=== PATIENT | female | born 1985 | race Two or more races ===

== ENCOUNTER 2024-02-27 07:26 | Inpatient (IN) ==
[2024-02-27] MEDS ORDERED: LIDOCAINE 1% LOCAL 20 ML VIAL INFIL PRN (07:44)
[2024-02-27] MEDS ORDERED: OXYTOCIN 30 UNITS/NSS 30 UNITS/500 ML BAG IV PRN (07:44)
[2024-02-27 08:12] LABS: Hematocrit (blood only) 40.1 % (37.0-47.0); Hemoglobin 13.1 g/dl (12.0-16.0); Mean Corpuscular Hemoglobin 28.4 pg (25.0-34.0); Mean Corpuscular Hgb Conc 32.7 g/dL (32.0-36.0); Mean Platelet Volume 13.9 fL (9.4-12.4); Platelet Count 120 K/uL (130-400); RDW Coefficient of Variation 14.1 % (11.5-14.5); RDW Standard Deviation 44.6 fL (36.4-46.3); Red Blood Count 4.61 M/uL (4.20-5.40)
[2024-02-27] MEDS: CALCIUM CARBONATE 500 MG CHEWABLE TAB PO PRN (09:39)
--- NOTE | 2024-02-27 10:09 | History & Physical Report ---
Date of Service February 27, 2024 Assessment & Plan (1) Post-dates : Plan: IOL with Oxytocin planned Admission and Anticipated Discharge Date Admission Date: February 27, 2024 History of Present Illness Chief Complaint: induction of labor Primary Care Provider: LASHAWN PCP 38 F P1001 at 40.5 admitted for IOL for post-dates and AMA. Her GBS is negative. Allergies Allergy/AdvReac Type Severity Reaction Status Date / Time No Known Allergies Allergy Unverified 02/27/24 08:46 Home Medications Medication Instructions Recorded Confirmed Type vit no.95-ferrous 1 tab PO DAILY 02/27/24 02/27/24 History fumarate 28 mg-folic acid 800 mcg tablet () Patient History Medical History Intrauterine synechiae AMA (advanced maternal age) multigravida 35+ Surgical History History of appendectomy Family History Grandmother (Maternal) Diabetes Mother Congestive heart failure (CHF) Graves disease Father Congestive heart failure (CHF) Social History Smoking Status: Former smoker Tobacco Type: Cigarettes Age Started Using Tobacco: 16; Age Quit Using Tobacco: 37; packs per day: 1; Smoking End Date: 03/2023; Second Hand Exposure: No; Do You Dip or Chew Tobacco: No; Tobacco Cessation Education Requested by Patient: No Hx Alcohol Use: No Hx Substance Use: No Preferred Language: Malaysian Communication Ability: Effective Visual Impairment: No Limitations Hearing Ability: Normal Composition Board Press Operator Required: No Beliefs That Will Affect Care: None marital status: Single marital status details: engaged Current Living Situation: Significant Other current occupational status: employed 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 Other Information That Helps Us Care for You: No Feels Safe at Home: Yes Safety Concerns: Feels Safe At This Time Childhood Exposure to Second-Hand Smoke: Yes Dental Care, Regularly: Yes Physical Activity Frequency: Daily Do you think of yourself as: straight/heterosexual Assistive Devices: None OB History x1 13 years ago new FOB [employer] GRADING SUPERVISOR History neg Review of Systems All systems reviewed & are unremarkable except as noted in HPI & below Physical Exam Constitutional: WD/WN, vitals as above Eyes: PERRL, conjunctivae normal, anicteric sclerae Respiratory: normal respiratory effort, lungs clear to auscultation Cardiovascular: RRR, no murmur, no edema Gastrointestinal (Abdomen): Inspection/Auscultation: abdomen normal to inspection Musculoskeletal: Extremities: extremities normal to inspection Skin: no rashes, warm and dry Neurologic: patellar DTR's 2+ bilat, sensation intact Psychiatric: A+Ox3, euthymic affect Genitourinary: Manual OB Exam: + cervical dilation 2 cm, + cervical effacement 50% and + station high OB Exam Monitor Tracing: + external FHT monitor used, + external uterine monitor used, + category I and + normal FHT variability Cervix soft/posterior EFW 8 lbs. Results & Data Vital Signs (Past 12 Hours) Vital Signs Temp Pulse Resp BP 02/27/24 08:16 36.8 C 20 02/27/24 07:33 101 H 136/77 Laboratory Results Laboratory Results - last 72 hr 02/27/24 07:52 WBC 8.20 RBC 4.61 Hgb 13.1 Hct 40.1 MCV 87.0 MCH 28.4 MCHC 32.7 RDW Std Deviation 44.6 RDW Coeff of Cheo 14.1 Plt Count 120 L MPV 13.9 H Monitoring External Monitor Cat 1 (1) Post-dates Post-term type: 40-42 weeks gestation Qualified Code(s): O48.0 - Post-term
[2024-02-27] MEDS: LACTATED RINGER'S 1,000 ML IV PRN (10:27)
[2024-02-27] MEDS: OXYTOCIN 30 UNITS/NSS 30 UNITS/500 ML BAG IV PRN (10:28)
--- NOTE | 2024-02-27 14:31 | Labor Progress Brief Note ---
Date of Service February 27, 2024 Assessment & Plan Admission and Anticipated Discharge Date Admission Date: February 27, 2024 Physical Exam Genitourinary: Manual OB Exam: + cervical dilation 2 cm and 3 cm, + cervical effacement 80%, + station -2 and + amniotic fluid clear OB Exam Monitor Tracing: + external FHT monitor used, + external uterine monitor used, + category I and + normal FHT variability AROM with Amni-hook clear fluid Results & Data Vital Signs (Past 12 Hours) Vital Signs Temp Pulse Resp BP 02/27/24 13:35 71 02/27/24 13:35 20 129/74 02/27/24 12:28 20 02/27/24 12:28 20 02/27/24 12:28 68 02/27/24 12:28 129/76 02/27/24 11:29 20 02/27/24 11:29 20 02/27/24 11:29 76 02/27/24 11:29 121/76 02/27/24 10:32 76 02/27/24 10:32 119/72 02/27/24 10:28 16 02/27/24 10:28 36.7 C 16 02/27/24 08:16 36.8 C 02/27/24 07:33 101 H 136/77
[2024-02-27] MEDS: CITRIC ACID/SODIUM CITRATE 15 ML UDC ONE (16:18)
[2024-02-27] MEDS ORDERED: OXYTOCIN 10 UNITS/ML VIAL ONE ×3 (16:19)
[2024-02-27] MEDS ORDERED: fentaNYL citrate PF 100 MCG/2 ML VIAL ONE (16:19)
[2024-02-27] MEDS ORDERED: MoRPHine SULFATE PF 1 MG/ML 10 ML AMP/VIAL ONE (16:19)
[2024-02-27] MEDS ORDERED: PHENYLEPHRINE HCL 25 MG/250 ML NSS IV ONE (16:25)
[2024-02-27] MEDS ORDERED: ONDANSETRON INJ 2 MG/ML 2 ML VIAL ONE (16:25)
--- NOTE | 2024-02-27 16:26 | Anesthesiology Consultation ---
Date of Service February 27, 2024 Assessment & Plan Chart Review Chart Review: Acceptable Risk for Surgery and Patient NOT seen in Pre Admission Testing Consults Requested none History Surgery Operation Date: 02/27/24 16:30 Proposed Procedures p Section in LD - Dre Seymour MD Height/Weight Height: 5 ft 8 in Weight: 100.698 kg Allergies Allergy/AdvReac Type Severity Reaction Status Date / Time No Known Allergies Allergy Unverified 02/27/24 08:46 Medications Home Medications Medication Instructions Recorded Confirmed Last Taken vit no.95-ferrous 1 tab PO DAILY 02/27/24 02/27/24 02/27/24 05:45 fumarate 28 mg-folic acid 800 mcg tablet () Active Medications Generic Name Dose Route Start Last Admin Trade Name Freq PRN Reason Stop Dose Admin Calcium Carbonate 500 mg 02/27/24 09:29 02/27/24 09:39 Calcium Carbonate 500 Mg Chewable Tab PO 03/28/24 09:28 500 mg Q4 PRN Administration Indigestion Lactated Ringer's 1,000 mls @ 125 mls/hr 02/27/24 07:44 02/27/24 10:27 Lr IV 02/29/24 07:43 125 mls/hr .Q8H PRN Administration L&D Protocol Protocol NPO Date Last Intake of Fluids: 02/27/24 Time Last Intake of Fluids: 12:30 Date Last Intake of Solids: 02/27/24 Time Last Intake of Solids: 06:30 Past Medical History Medical History Intrauterine synechiae AMA (advanced maternal age) multigravida 35+ Past Family History Family History Grandmother (Maternal) Diabetes Mother Congestive heart failure (CHF) Graves disease Father Congestive heart failure (CHF) Past Surgical History Surgical History History of appendectomy Social History Smoking Status: Former smoker Do You Dip or Chew Tobacco: No Smoking End Date: 03/2023 Hx Alcohol Use: No Hx Substance Use: No Physical Exam Vital Signs Last Vital Signs Temp 36.8 C 02/27/24 14:36 Pulse 95 H 02/27/24 15:28 Resp 20 02/27/24 13:35 BP 139/95 02/27/24 15:28 Constitutional WD/WN, vitals as above Eyes PERRL, conjunctivae normal, anicteric sclerae Respiratory normal respiratory effort, lungs clear to auscultation Cardiovascular RRR, no murmur, no edema Gastrointestinal (Abdomen) Inspection/Auscultation: abdomen normal to inspection Musculoskeletal Extremities: extremities normal to inspection Skin no rashes, warm and dry Neurologic patellar DTR's 2+ bilat, sensation intact Psychiatric A+Ox3, euthymic affect Genitourinary Manual OB Exam: + cervical dilation + 2 cm and + 3 cm, + cervical effacement + 80%, + station + -2 and + amniotic fluid + clear OB Exam Monitor Tracing: + external FHT monitor used, + external uterine monitor used, + category I and + normal FHT variability Testing Laboratory Results 02/27/24 07:52
--- NOTE | 2024-02-27 16:29 | Labor Progress Brief Note ---
Date of Service February 27, 2024 Assessment & Plan Admission and Anticipated Discharge Date Admission Date: February 27, 2024 Physical Exam Genitourinary: Manual OB Exam: + cervical dilation 6 cm, + cervical effacement 90%, + station -1 and + amniotic fluid clear OB Exam Monitor Tracing: + external FHT monitor used, + external uterine monitor used, + category I and + normal FHT variability found to be breech with ultrasound confirmation will proceed with primary for breech consents signed Results & Data Vital Signs (Past 12 Hours) Vital Signs Temp Pulse Resp BP 02/27/24 16:26 71 02/27/24 16:26 155/75 H 02/27/24 15:28 95 H 02/27/24 15:28 139/95 02/27/24 14:36 36.8 C 02/27/24 14:36 73 02/27/24 14:36 137/82 02/27/24 13:35 71 02/27/24 13:35 20 129/74 02/27/24 12:28 20 02/27/24 12:28 20 02/27/24 12:28 68 02/27/24 12:28 129/76 02/27/24 11:29 20 02/27/24 11:29 20 02/27/24 11:29 76 02/27/24 11:29 121/76 02/27/24 10:32 76 02/27/24 10:32 119/72 02/27/24 10:28 16 02/27/24 10:28 36.7 C 16 02/27/24 08:16 36.8 C 20 02/27/24 07:33 101 H 136/77
[2024-02-27] MEDS ORDERED: LACTATED RINGER'S 1,000 ML IV SCH ×2 (16:30→18:45)
[2024-02-27] MEDS: ceFAZolin 3000MG 3,000 MG/72.5 ML BAG IV ONE (16:35)
[2024-02-27] MEDS ORDERED: diphenhydrAMINE 50 MG/ML VIAL IV PRN (16:56)
[2024-02-27] MEDS ORDERED: LACTATED RINGER'S 500 ML IV PRN (16:56)
[2024-02-27] MEDS ORDERED: NALOXONE HCL 0.4 MG/1 ML VIAL/CARP IV PRN (16:56)
[2024-02-27] MEDS ORDERED: MoRPHine SULFATE PF 1 MG/ML 10 ML AMP/VIAL INT SPINAL ONE (16:56)
[2024-02-27] MEDS ORDERED: ePHEDrine sulfate 50 MG/ML AMP IV PRN (16:56)
[2024-02-27] MEDS ORDERED: DROPERIDOL 5 MG/2 ML VIAL IV PRN (16:56)
[2024-02-27] MEDS ORDERED: NALOXONE HCL 0.08 MG in SYRINGE 1.8 ML IV PRN (16:56)
[2024-02-27] MEDS ORDERED: HYDROmorphone INJ 0.5 MG/0.5 ML SYR IV PRN (16:56)
[2024-02-27] MEDS ORDERED: NALBUPHINE HCL 5 MG in SYRINGE 0 ML IV PRN (16:56)
[2024-02-27] MEDS ORDERED: NALOXONE HCL 1 MG in SODIUM CHLORIDE 0.9% 1,000 ML IV PRN (16:56)
[2024-02-27] MEDS: AZITHROMYCIN 500 MG in DEXTROSE 5% 250 ML IV ONE (16:57)
[2024-02-27] MEDS ORDERED: NO NARCOTICS OR SEDATIVES SCH (17:00)
[2024-02-27] MEDS ORDERED: DC INTRASPINAL MORPHINE SCH (17:00)
--- NOTE | 2024-02-27 17:59 | Post Operative Brief Note ---
Immediate Post Op Note Date of Surgery February 27, 2024 Pre & Post Diagnosis Operation Date: 02/27/24 16:30 Pre-Op Diagnosis: Intrauterine , breech presentation, primary section Post-Op Diagnosis: same I identified the patient and participated in the time-out.: Yes Procedure Operation Date: 02/27/24 16:30 Actual Procedures p Section in LD breech living female child 1709(Bilateral) - Dre Seymour MD Surgeon Dre Seymour MD Accounting Methods Analyst Dr Baugh Quantitative Blood Loss (QBL) 537 ml. Findings Consistent with Post-Op Diagnosis live female Apgars 8/8 weight 8lbs. 7 oz. Fluids LR 500 ml. Specimens Specimen Description: A: cord blood B: placenta-exam Drains Loo Catheter (inserted following spinal placement by Socorro Romo RN without difficulty. Draining clear yellow urine. Output to be monitored by anesthesia intraoperatively) Anesthesia Type Spinal Complications none Disposition Accompanied Patient To Recovery: Yes Overlapping Procedure I was present for: the critical portions of procedure. I was immediately available: during the entire case. Back up surgeon: was not required during procedure.
[2024-02-27] MEDS ORDERED: PROMETHAZINE HCL 25 MG in SODIUM CHLORIDE 0.9% 50 ML IV PRN (18:26)
[2024-02-27] MEDS ORDERED: MAGNESIUM HYDROXIDE SUSP 30 ML UDC PO PRN (18:26)
[2024-02-27] MEDS ORDERED: diphenhydrAMINE Capsule 25 MG CAP PO PRN (18:26)
[2024-02-27] MEDS ORDERED: SENNA 8.6 MG TAB PO PRN (18:26)
[2024-02-27] MEDS ORDERED: BENZOCAINE 20% SPRY 85 APPLN/85 GM CAN EXT PRN (18:26)
[2024-02-27] MEDS ORDERED: ONDANSETRON INJ 2 MG/ML 2 ML VIAL IV PRN (18:26)
[2024-02-27] MEDS ORDERED: HYDROCORTISONE ACETATE 25 MG SUPP PR PRN (18:26)
[2024-02-27] MEDS: DIPHTHER/TETAN/PERTUS Vaccine (Tdap, Adol/Adult) 0.5mL IM ONE (18:44)
--- NOTE | 2024-02-27 18:56 | Operative Report ---
Post Operative Report Pre & Post Diagnosis Operation Date: 02/27/24 16:30 Pre-Op Diagnosis: Intrauterine , breech presentation, primary section Post-Op Diagnosis: same I identified the patient and participated in the time-out.: Yes Procedure Operation Date: 02/27/24 16:30 Actual Procedures p Section in LD breech living female child 1709(Bilateral) - Dre Seymour MD Surgeon Dre Seymour MD Pediatric Physician Assistant Dr Baugh Estimated Blood Loss 537 Findings Consistent with Post-Op Diagnosis live female rhys breech presentation weight 8lbs. 7 oz. Fluids 500 ml. Specimens placenta Drains Loo 50 ml. Anesthesia Type Spinal Complications none Disposition Accompanied Patient To Recovery: Yes Indications breech presentation Description of Procedure Under satisfactory spinal anesthesia the patient was prepped in usual sterile fashion the patient was tested for adequacy of anesthesia antibiotics were given preop. A timeout was called and the patient was identified prior to the start of the procedure. A low Pfannenstiel incision was then made and then carried the incision down through the layers of the abdominal wall into the peritoneal cavity. The bladder flap was then developed with Metzenbaum scissors sharply dissecting down the vesicouterine peritoneum. A low segment transverse incision over the lower uterine segment was then made the incision was widened in the AP diameter of the baby was delivered from the breech presentation through the incision without difficulty the cord was doubly clamped and cut after a 1 minute delay with an of 8 and 9 weight was 8 pounds 7 ounces rhys breech presentation. Cord blood was then obtained the placenta was then delivered spontaneously and intact. The uterus was then exteriorized. Ring forceps were then placed on both angles and the inferior margin of the uterus and was then closed with a double layer closure of 0 Vicryl suture in a continuous fashion. The initial sponge and instrument count were found to be correct. The uterus was then placed back into the normal anatomical position the tubes ovaries bilaterally were found to be within normal limits. The fascia was then closed from both ends using 0 Vicryl suture in a continuous fashion followed by 3-0 plain suture for the subcuticular layer and 4-0 Monocryl for the skin. Steri- Strips Telfa and ABD dressing were then applied clear urine was noted from the Loo the estimated blood loss the QBL rather was 537 mL the final sponge and instrument count being correct the patient was then placed supine on stretcher moved to recovery room in stable condition. I attest to the content of the Intraoperative Record and any orders documented therein. Any exceptions are noted below. Please note that Dr. Baugh was needed to provide retraction and assistance at delivery of breech, closure of abdomen and uterus.
[2024-02-27] MEDS: OXYTOCIN 20 UNITS/LR 1,002 ML IV SCH (19:36)
[2024-02-27] MEDS: KETOROLAC 30 MG/ML VIAL IV PRN (20:50)
[2024-02-27] MEDS: SIMETHICONE 80 MG CHEW PO SCH (20:50)
[2024-02-27] MEDS: DOCUSATE SODIUM 100 MG CAP PO SCH (20:51)
--- OUTSIDE RECORDS SUMMARY | 2024-02-28 01:52 | External Medical Summary | Summary of Care ---
Author Name Unknown Organization [facility] Address [address] [facility] [place] [address] Phone [phone] Care Team Providers Care Sports Physiologist Name Role Phone Diego Morfin MD Primary Care Provider Reason for Visit * Reason Comments Return Visit Encounter Details Date Type Department Care Team (Late st Contact Info) Description 02/21/2024 4:45 PM EDT Office Visit Gynecology/Obstetri vargas [facility] [address] [place] [address] Zoe Gibbs PA-C [address] [place] [address] Nurse [facility] Return [facility] [place] [address] High-risk in third trimester*; Multigravida of advanced maternal age in third trimester; Late care; Obesity in , antepartum; Intrauterine synechiae; Health counseling Allergies No known active allergiesdocumented as of this encounter (statuses as of 02/21/2024) Medications Medication Sig Dispensed Refills Start Date End Date Status 27-0.8 MG Oral Tablet Take 1 Tablet by mouth daily at noon. Active documented as of this encounter (statuses as of 02/21/2024) Active Problems Problem Noted Date Diagnosed Date High-risk 12/19/2023 Health counseling 11/16/2023 Overview: Problem Action Taken Date entered Entered by Date resolved nutrition Due date letter given. 11/16/2023 Nicole Meredith RN 11/16/2023 education Birthly info given. 11/16/2023 Nicole Meredith RN 11/16/2023 Problem Action Taken Date entered Entered by Date resolved Current needs or questions Patient denies having any current needs or questions 12/19/2023 Aurora Lopez RN 12/19/2023 Problem Action Taken Date entered Entered by Date resolved Current needs or questions Patient denies having any current needs or questions 01/02/2024 Nicole Meredith RN 01/02/2024 Problem Action Taken Date entered Entered by Date resolved Current needs or questions Patient denies having any current needs or questions 01/15/2024 Nicole Meredith RN 01/15/2024 Problem Action Taken Date entered Entered by Date resolved Current needs or questions Patient denies having any current needs or questions 01/29/2024 Nicole Meredith RN 01/29/2024 Problem Action Taken Date entered Entered by Date resolved Current needs or questions Patient denies having any current needs or questions 02/05/2024 Nicole Meredith RN 02/05/2024 Problem Action Taken Date entered Entered by Date resolved Current needs or questions Patient denies having any current needs or questions 02/12/2024 Aurora Lopez RN 02/12/2024 Problem Action Taken Date entered Entered by Date resolved Current needs or questions Patient denies having any current needs or questions 02/21/2024 Aurora Lopez RN 02/21/2024 Intrauterine synechiae 10/23/2023 Overview: Noted at 22 wks, will repeat scan 28 wks Late care 09/19/2023 Overview: Initiated at 18 weeks AMA (advanced maternal age) multigravida 35+ 11/2023 Obesity in , antepartum 09/19/2023 Overview: Class 1 Estimated Date of Delivery Comme nts Yes 02/22/2024 Based on last me nstrual period of 05/18/2023 documented as of this encounter (statuses as of 02/21/2024) Immunizations Name Administration Dates Next Due Seasonal Influenza, PF, 6 M & above, IM , (FluLaval or Fluzone) 09/19/2023 TDAP (age 10 and older)(Boostrix) 12/19/2023 documented as of this encounter Social History Tobacco Use Types Packs/Day Years Used Date Smoking Tobacco: Never Smokeless Tobacco: Never Alcohol Use Standard Drinks/Week Comments Not Currently 0 (1 standard drink = 0.6 oz pur e alcohol) PHQ-2 Answer Date Recorded PHQ Adult Total Score 0 12/03/2023 Hunger Vital Sign Answer Date Recorded Within the past 12 months, y ou worried that your food would run out before you got the money to buy more. Never true 09/06/20 23 Within the past 12 months, t he food you bought just didn't last and you didn't have money to get more. Never true 09/06/2023 [place] Depression Scale Answer Date Recorded [place] Depression Scale Total 4 01/15/2024 The thought of harming myself has occurred to me . Never 01/15/2024 Estimated Date of Delivery Comme nts Yes 02/22/2024 Based on last me nstrual period of 05/18/2023 Sex and Gender Information Value Date Recorded Sex Assigned at Female 09/06/2023 4:51 PM EST Gender Identity Female 09/06/2023 4:51 PM EST Sexual Orientation Straight 09/06/2023 4: 51 PM EST Job Start Date Occupation Industry Not on file Not on file Not on file documented as of this encounter Last Filed Vital Signs Vital Sign Reading Time Taken Comments Blood Pressure 118/78 02/21/2024 4:56 PM EDT Pulse - - Temperature - - Respiratory Rate - - Oxygen Saturation - - Inhaled Oxygen Concentration - - Weight 102.6 kg (226 lb 3.2 oz) 02/21/2024 4:56 PM EDT Height 172.7 cm (5' 8") 02/21/2024 4:56 PM EDT Body Mass Index 34.39 02/21/2024 4:56 PM EDT documented in this encounter Progress Notes * Zoe Gibbs PA-C - 02/21/2024 5:07 PM EDT [id number] Denies complaints. Denies VB, LOF, regular contractions. Reports intermittent contractions. No timing or regularity. Declines cervical check. Baby active. Labor precautions given. Has numbers to call if needed. IOL 02/27/2024, she is aware Zoe Gibbs PA-C documented in this encounter Nursing Notes * Aurora Lopez RN - 02/21/2024 4:57 PM EDT Patient here for CECILY 39w6d No concerns + FM Patient seen by [facility] Sharepoint Solutions Developer. Patient denies any questions or concerns. Aurora Lopez RN documented in this encounter Plan of Treatment Health Maintenance Due Date Last Done Comments Diabetes Screening 1985 Hepatitis B (1 of 3 - 19+ 3-dose series) 2004 COVID-19 Vaccine ( - 2022-2 4 season) 2023 Depression Screening 12/02/2024 12/03/2023 Pap Smear 09/19/2026 09/19/2023 Cervical Cancer Screening 09/19/2028 HPV/Co-Test 09/19/2028 09/19/2023 DTaP,Tdap,and Td Vaccines (2 - Td or Tdap) 2033 12/19/2023 Influenza Vaccine (FLU shot) Completed 11/2023, 09/19/2023 GARDASIL-HPV IMMUNIZATION SERIES Aged Out No longer eligible b ased on patient's age to complete this topic MENINGOCOCCAL (MENACTRA/MENVEO) Aged Out No longer eligible b ased on patient's age to complete this topic Pneumococcal Vaccine: Pediatrics (0 to 5 Years) and At-Risk Patients (6 to 64 Years) Aged Out No longer eligible b ased on patient's age to complete this topic documented as of this encounter Medical Devices Not on filedocumented as of this encounter Visit Diagnoses Diagnosis High-risk in third trimester- Primary Multigravida of advanced maternal age in third trimester Late care Insufficient care Obesity in , antepartum Obesity complicating , childbirth, or the puerperium, antepartum condition or complication Intrauterine synechiae Health counseling Other specified counseling documented in this encounter Care Teams Sports Physiologist Relationship Specialty Start Date End Date Diego Morfin MD [address] [address] PCP - General 06/01/00 documented as of this encounter
--- OUTSIDE RECORDS SUMMARY | 2024-02-28 01:52 | External Medical Summary | Summary of Care ---
Author Name Unknown Organization [facility] Address [address] [facility] [place] [address] Phone [phone] Care Team Providers Care Instrument Adjuster Name Role Phone Diego Morfin MD Primary Care Provider Encounter Details Date Type Department Care Team (Late st Contact Info) Description 02/21/2024 Telephone Gynecology/Obstetrics [facility] [address] [place] [address] Zoe Gibbs PA-C [address] [place] [address] Allergies No known active allergiesdocumented as of this encounter (statuses as of 02/22/2024) Medications Medication Sig Dispensed Refills Start Date End Date Status 27-0.8 MG Oral Tablet Take 1 Tablet by mouth daily at noon. Active documented as of this encounter (statuses as of 02/22/2024) Active Problems Problem Noted Date Diagnosed Date [...] as of this encounter (statuses as of 02/22/2024) Immunizations Name Administration Dates Next Due Seasonal [...] money to get more. Never true 09/06/2023 [place] Depression Scale Answer Date Recorded [place] Depression Scale Total 4 01/15/2024 The thought [...] on file documented as of this encounter Miscellaneous Notes * Telephone Encounter - Aurora Lopez RN - 02/22/2024 8:53 AM EDT Patient scheduled.My G Message sent making patient aware. * Telephone Encounter - Zoe Gibbs PA-C - 02/21/2024 5:06 PM EDT Please assist in scheduling patient back for CECILY on Sunday02/25/2024 as she will be postdates. documented in this encounter Plan of Treatment Upcoming Encounters Date Type Department Care Team (Late st Contact Info) Description 02/25/2024 8:15 AM EDT [facility] [address] [place] [address] Backer, KEILA Joseph [address] [place] [address] Health Maintenance Due Date Last Done Comments Diabetes Screening 1985 Hepatitis B (1 of 3 - 19+ 3-dose series) 2004 COVID-19 Vaccine (1 - 2022-2 4 season) 2023 Depression Screening [...] Not on filedocumented as of this encounter Care Teams Instrument Adjuster Relationship Specialty Start Date End Date Diego Morfin MD [address] [facility] [address] [place] [address] [place] [address], [place] [address] PCP - General 06/01/00 documented as of this encounter
--- OUTSIDE RECORDS SUMMARY | 2024-02-28 01:52 | External Medical Summary | Summary of Care ---
Author Name Unknown Organization [facility] Address [address] [facility] [place] [address] Phone [phone] Care Team Providers Care Baller Tender Name Role Phone Diego Morfin MD Primary Care Provider Reason for Visit * Reason Comments Return Visit Encounter Details Date Type Department Care Team (Late st Contact Info) Description 02/21/2024 4:45 PM EDT Office Visit Gynecology/Obstetri vargas [address] [place] [address] Zoe Gibbs PA-C [address] [place] [address] Nurse [facility] [employer] Return [place] [place] [address] High-risk in third trimester*; Multigravida of advanced [...] money to get more. Never true 09/06/2023 [place] Depression Scale Answer Date Recorded [place] Depression Scale Total 4 01/15/2024 The thought [...] No concerns + FM Patient seen by [facility] Vice President Business & Corporate Development. Patient denies any questions or concerns. Aurora Lopez RN documented in this encounter Plan of Treatment Upcoming Encounters Date Type Department Care Team (Late st Contact Info) Description 02/25/2024 8:15 AM EDT Office Visit Gynecology/Obstetrics [facility] [address] [place] [address] BackerDacia CRNP [address] [place] [address] Health Maintenance Due Date Last Done Comments Diabetes Screening 1985 Hepatitis B (1 of 3 - 19+ 3-dose series) 2004 COVID-19 Vaccine (2022-2 4 season) 2023 Depression Screening 12/02/2024 12/03/2023 [...] counseling documented in this encounter Care Teams Baller Tender Relationship Specialty Start Date End Date Diego Morfin MD [facility] [address] [address] PCP - General 06/01/00 documented as of this encounter
--- OUTSIDE RECORDS SUMMARY | 2024-02-28 01:52 | External Medical Summary | Summary of Care ---
Author Name Unknown Organization [facility] Address [address] [facility] [place] [address] Phone [phone] Care Team Providers Care Financial Accounting Manager Name Role Phone Diego Morfin MD Primary Care Provider Reason for Visit * Reason Comments Return Visit Encounter Details Date Type Department Care Team (Late st Contact Info) Description 02/21/2024 4:45 PM EDT Office Visit Gynecology/Obstetri vargas [place] [address] [place] [address] Zoe Gibbs PA-C [address] [place] [address] Nurse Shaq [facility] Return Radha [address] [place] [address] High-risk in third trimester*; Multigravida of advanced [...] money to get more. Never true 09/06/2023 [place] Depression Scale Answer Date Recorded [place] Depression Scale Total 4 01/15/2024 The thought [...] No concerns + FM Patient seen by [facility] Sizing Machine And Drier Operator. Patient denies any questions or concerns. Aurora [...] counseling documented in this encounter Care Teams Financial Accounting Manager Relationship Specialty Start Date End Date Diego Morfin MD [address] [address] PCP - General 06/01/00 documented as of this encounter
--- OUTSIDE RECORDS SUMMARY | 2024-02-28 01:53 | External Medical Summary | Summary of Care ---
Author Name Unknown Organization [facility] Address [address] [facility] [place] [address] Phone [phone] Care Team Providers Care American Studies Professor Name Role Phone Diego Morfin MD Primary Care Provider Reason for Visit * Reason Comments Return Visit Encounter Details Date Type Department Care Team (Late st Contact Info) Description 01/15/2024 1:30 PM EDT Office Visit Gynecology/Obstetri vargas New [address] [place] [address] Dacia Ndiaye CRNP [address] [place] [address] Nurse Angi [facility] Return Radha [address] [place] [address] High-risk in third trimester*; Late care; Multigravida of advanced maternal age in third trimester; Obesity in , antepartum; Intrauterine synechiae; Health counseling Allergies No known active allergiesdocumented as of this encounter (statuses as of 01/15/2024) Medications Medication Sig Dispensed Refills Start Date End Date Status 27-0.8 MG Oral Tablet Take 1 Tablet by mouth daily at noon. 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 Never true 09/06/2023 [place] Depression Scale Answer Date Recorded [place] Depression Scale Total 4 01/15/2024 The thought [...] Sign Reading Time Taken Comments Blood Pressure 106/64 01/15/2024 1:24 PM EDT Pulse - - Temperature - - Respiratory Rate - - Oxygen Saturation - - Inhaled Oxygen Concentration - - Weight 102.1 kg (225 lb) 01/15/2024 1:24 PM EDT Height - - Body Mass Index 34.21 01/02/2024 1:46 PM EDT documented in this encounter Progress Notes * Dacia Ndiaye CRNP - 01/15/2024 1:25 PM EDT 34w4d Baby moving well. No regular ctx, leaking, bleeding. Provided labor instructions. Unsure on control , briefly discussed progesterone-only or non-hormonal options for first 6 mos of . Directed to [employer] website for further information. Discussed GBS swab to be completed at next visit in 2 weeks. KEILA Goel * Annie Flanagan LPN - 01/15/2024 1:24 PM EDT 34w4d Denies vaginal bleeding/rom + movement Labor instructions given No new concerns documented in this encounter Plan of Treatment Upcoming Encounters Date Type Department Care Team (Late st Contact Info) Description 01/29/2024 2:00 PM EDT Office Visit Gynecology/Obstetrics [place] [address] [place] [address] Emilie Santana CRNP [address] [place], [place] [address] Nurse Shaq Healthy Beginnings[facility] Return Radha [address] [place] [address] 02/05/2024 1:30 PM EDT Office Visit Gynecology/Obstetrics [place] [place] [address] [place] [address] Dacia Ndiaye CRNP [address] [place] [address] Nurse Angi [facility] Return Radha [address] [place], [place] [address] 02/12/2024 2:00 PM EDT Office Visit Gynecology/Obstetrics [place] [place] [address] [place] [address] Emilie Santana CRNP [address] [place] [address] Nurse Shaq Angi Beginningshayy Return Radha [address] [place], [place] [address] Health Maintenance Due Date Last Done Comments [...] Diagnoses Diagnosis High-risk in third trimester- Primary Late care Insufficient care Multigravida of advanced maternal age in third trimester Obesity in , antepartum Obesity complicating , childbirth, or the puerperium, antepartum condition or complication Intrauterine synechiae Health counseling Other specified counseling documented in this encounter Care Teams American Studies Professor Relationship Specialty Start Date End Date Diego Morfin MD 6 [facility] [address] [place] [address] PCP - General 06/01/00 documented as of this encounter
--- OUTSIDE RECORDS SUMMARY | 2024-02-28 01:53 | External Medical Summary | Summary of Care ---
Author Name Unknown Organization [facility] Address [address] [facility] [place] [address] Phone [phone] Care Team Providers Care Patrol Guard Name Role Phone Diego Morfin MD Primary Care Provider Reason for Visit * Reason Comments Outpatient Testing Encounter Details Date Type Department Care Team (Late st Contact Info) Description 12/03/2023 7:20 AM EDT Laboratory [facility], [facility] [address] [facility] [place] [address] Multigravida of advanced maternal age in second trimester Allergies No known active allergiesdocumented as of this encounter (statuses as of 12/03/2023) Medications Medication Sig Dispensed Refills Start Date End Date Status 27-0.8 MG Oral Tablet Take 1 Tablet by mouth daily at noon. 0 Active documented as of this encounter (statuses as of 12/03/2023) Active Problems Problem Noted Date Diagnosed Date Health counseling 11/16/2023 Overview: Problem Action Taken Date entered Entered by Date resolved nutrition Due date letter given. 11/16/2023 Nicole Meredith RN 11/16/2023 education Birthly info given. 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 Never true 09/06/2023 [place] Depression Scale Answer Date Recorded [place] Depression Scale Total 5 12/03/2023 The thought of harming myself has occurred to me . Never 12/03/2023 Estimated Date of Delivery Comme nts Yes [...] on file documented as of this encounter Plan of Treatment Upcoming Encounters Date Type Department Care Team (Late Contact Info) Description 12/19/2023 1:30 PM EDT Office Visit Gynecology/Obstetrics [place] 132 [facility] [place] [address] Backer, KEILA Joseph [address] [place] [address] Nurse Shaq [facility] Return Radha [address] [place] [address] Pending Results Name Type Priority Associated Diagnoses Date /Time GESTATIONAL GLUCOSE TOLERANCE, 3 HOUR Lab Routine Multigravida of advanced maternal age in second trimester 12/03/2023 7:14 AM EDT CBC WITH WBC DIFFERENTIAL AND ANEMIA REFLEX WORKUP Lab Routine Multigravida of advanced maternal age in second trimester 12/03/2023 7:14 AM EDT SYPHILIS ANTIBODY SCREEN WITH REFLEX TO RPR Lab Routine Multigravida of advanced maternal age in second trimester 12/03/2023 7:14 AM EDT ANEMIA CBC Lab Routine Multigravida of advanced maternal age in second trimester 12/03/2023 7:14 AM EDT DIFFERENTIAL, AUTOMATED Lab Routine Multigravida of advanced maternal age in second trimester 12/03/2023 7:14 AM EDT ANEMIA REFLEX CHEMISTRY HOLD Lab Routine Multigravida of advanced maternal age in second trimester 12/03/2023 7:14 AM EDT SYPHILIS ANTIBODY SCREEN Lab Routine Multigravida of advanced maternal age in second trimester 12/03/2023 7:14 AM EDT 100-G GESTATIONAL GLUCOSE, 3 HOUR Lab Routine Multigravida of advanced maternal age in second trimester 12/03/2023 10:25 AM EDT Health Maintenance Due Date Last Done Comments Diabetes Screening 1985 DTaP,Tdap,and Td Vaccines (1 - Tdap) 2004 Hepatitis B (1 of 3 - 19+ 3-dose series) 2004 COVID-19 Vaccine (2022-2 4 season) 2023 Depression Screening 12/02/2024 12/03/2023 Pap Smear 09/19/2026 09/19/2023 Cervical Cancer Screening 09/19/2028 HPV/Co-Test 09/19/2028 09/19/2023 Influenza Vaccine (FLU shot) Completed 11/2023, 09/19/2023 [...] Not on filedocumented as of this encounter Procedures Procedure Name Priority Date/Time Associated Diagnosis Comments 100-G GESTATIONAL GLUCOSE, 2 HOUR Routine 12/03/2023 9:21 AM EDT Multigravida of advanced maternal age in second trimester 100-G GESTATIONAL GLUCOSE, 1 HOUR Routine 12/03/2023 8:19 AM EDT Multigravida of advanced maternal age in second trimester 100-G GESTATIONAL GLUCOSE, FASTING Routine 12/03/2023 7:14 AM EDT Multigravida of advanced maternal age in second trimester documented in this encounter Results * 100-G GESTATIONAL GLUCOSE, 2 HOUR (12/03/2023 9:21 AM EDT) 100-g Gestational Glucose, 2 Hour 94 70 - 154 mg/dL 12/03/2023 10:25 AM EDT LABORATORY [place] 57-10 Blood Venous blood specimen / Unknown Venipuncture / Unknown 12/03/2023 9:21 AM EDT 12/03/2023 9:21 AM EDT Emilie PEDRAZA LAB BLOOD ORDERABLES LABORATORY [place] 57-10 132 [facility] [place] [address] * 100-G GESTATIONAL GLUCOSE, 1 HOUR (12/03/2023 8:19 AM EDT) 100-g Gestational Glucose, 1 Hour 108 70 - 179 mg/dL 12/03/2023 10:17 AM EDT LAB[facility]ATORY [place] 57-10 Blood Venous blood specimen / Unknown Venipuncture / Unknown 12/03/2023 8:19 AM EDT 12/03/2023 8:19 AM EDT Emilie Santana JEWEL SORTER LAB BLOOD ORDERABLES Performing Organization Address City/[facility]/ZIP Co de Phone Number LABORATORY [place] [phone] [place] [address] * 100-G GESTATIONAL GLUCOSE, FASTING (12/03/2023 7:14 AM EDT) 100-g Gestational Glucose, Fasting 83 70 - 94 mg/dL 12/03/2023 8:48 AM EDT LAB[facility]ATORY [place] 57-10 Blood Venous blood specimen / Unknown Venipuncture / Unknown 12/03/2023 7:14 AM EDT 12/03/2023 7:14 AM EDT Narrative LAB[facility]ATORY [facility] 57-10 - 12/03/2023 8:48 AM EDT Based on ACOG guideline, gestational diabetes mellitus is diagnosed when any of the following is met: Fasting is greater than or equal to 95 mg/dL 1 hour is greater than or equal to 180 mg/dL 2 hour is greater than or equal to 155 mg/dL 3 hour is greater than or equal to 140 mg/dL Emilie Santana JEWEL SORTER LAB BLOOD ORDERABLES Performing Organization Address City/[facility]/ZIP Co de Phone Number LABORATORY [facility] [phone] [place] [address] documented in this encounter Visit Diagnoses Diagnosis Multigravida of advanced maternal age in second trimester documented in this encounter Care Teams Patrol Guard Relationship Specialty Start Date End Date Diego Morfin MD [address] [place] [address] PCP - General 06/01/00 documented as of this encounter
--- OUTSIDE RECORDS SUMMARY | 2024-02-28 01:53 | External Medical Summary | Summary of Care ---
Author Name Unknown Organization [facility] [address] [facility] [address] Phone [phone] Care Team Providers Care Grain Wafer Machine Operator Name Role Phone Diego Morfin MD Primary Care Provider Reason for Visit * Reason Comments Return Visit Encounter Details Date Type Department Care Team (Late st Contact Info) Description 02/12/2024 2:00 PM EDT Office Visit Gynecology/Obstetri vargas New [address] [place] [address] Emilie Santana CRNP [address] [place] [address] Nurse Shaq [facility] Return Radha [address] [place] [address] Multigravida of advanced maternal age in third trimester*; Late care; Obesity in , antepartum; Intrauterine synechiae; Health counseling; High-risk in third trimester Allergies No known active allergiesdocumented as of this encounter (statuses as of 02/12/2024) Medications Medication Sig Dispensed Refills Start Date End Date Status 27-0.8 MG Oral Tablet Take 1 Tablet by mouth daily at noon. 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 Never true 09/06/2023 [place] Depression Scale Answer Date Recorded [place] Depression Scale Total 4 01/15/2024 The thought [...] Sign Reading Time Taken Comments Blood Pressure 110/64 02/12/2024 2:14 PM EDT Pulse - - Temperature - - Respiratory Rate - - Oxygen Saturation - - Inhaled Oxygen Concentration - - Weight 102.1 kg (225 lb) 02/12/2024 2:14 PM EDT Height 172.7 cm (5' 8") 02/12/2024 2:14 PM EDT Body Mass Index 34.21 02/12/2024 2:14 PM EDT documented in this encounter Progress Notes * Emilie Santana CRNP - 02/12/2024 2:40 PM EDT 38w4d No concerns. Baby is active. No contractions, bleeding, LOF. Discussed contraception, partner planning vasectomy but not scheduled yet. Encouraged to schedule, and to consider short-term contraceptives until this can be done and cleared. Discussed IOL when postdates, agreeable. KEILA Ramos * Ann Monk LPN - 02/12/2024 2:13 PM EDT 38w4d documented in this encounter Nursing Notes * Aurora Lopez RN - 02/12/2024 2:27 PM EDT Patient seen by [facility] Assistant. Patient denies any questions or concerns. Aurora [...] as of this encounter Visit Diagnoses Diagnosis Multigravida of advanced maternal age in third trimester- Primary Late care Insufficient care Obesity in , antepartum Obesity complicating , childbirth, or the puerperium, antepartum condition or complication Intrauterine synechiae Health counseling Other specified counseling High-risk in third trimester documented in this encounter Care Teams Grain Wafer Machine Operator Relationship Specialty Start Date End Date Diego Morfin MD [address] [facility] [address] [place] [address] [place] [address], [place] [address] PCP - General 06/01/00 documented as of this encounter
--- OUTSIDE RECORDS SUMMARY | 2024-02-28 01:53 | External Medical Summary | Summary of Care ---
Author Name Unknown Organization [facility] Address [address] [facility] [place] [address] Phone [phone] Care Team Providers Care Inking Machine Tender Name Role Phone Diego Morfin MD Primary Care Provider Reason for Visit * Reason Comments Return Visit Encounter Details Date Type Department Care Team (Late st Contact Info) Description 02/05/2024 1:30 PM EDT Office Visit Gynecology/Obstetri vargas New [address] [place] [address] Dacia Ndiaye CRNP [address] [place] [address] Nurse Angi [facility] Return Radha [address] [place] [address] High-risk in third trimester*; Late care; Multigravida of advanced maternal age in third trimester; Obesity in , antepartum; Intrauterine synechiae; Health counseling Allergies No known active allergiesdocumented as of this encounter (statuses as of 02/05/2024) Medications Medication Sig Dispensed Refills Start Date End Date Status 27-0.8 MG Oral Tablet Take 1 Tablet by mouth daily at noon. 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 Never true 09/06/2023 [employer] Depression Scale Answer Date Recorded [employer] Depression Scale Total 4 01/15/2024 The thought [...] Sign Reading Time Taken Comments Blood Pressure 112/64 02/05/2024 1:43 PM EDT Pulse - - Temperature - - Respiratory Rate - - Oxygen Saturation - - Inhaled Oxygen Concentration - - Weight 101.6 kg (224 lb) 02/05/2024 1:43 PM EDT Height - - Body Mass Index 34.06 01/29/2024 2:19 PM EDT documented in this encounter Progress Notes * Dacia Ndiaye CRNP - 02/05/2024 1:49 PM EDT 37w4d Baby moving well. No regular ctx, leaking/bleeding. Has good family support locally for . 1 week return KEILA Goel * Annie Flanagan LPN - 02/05/2024 1:43 PM EDT 37w4d Denies vaginal bleeding/rom + movement documented in this encounter Plan of Treatment Upcoming Encounters Date Type Department Care Team (Late st Contact Info) Description 02/12/2024 2:00 PM EDT Office Visit Gynecology/Obstetrics [facility] New [address] [place] [address] Emilie Santana CRNP [address] [place] [address] Nurse Sahq [facility] Return Radha [address] [place] [address] Health Maintenance Due Date Last Done Comments [...] counseling documented in this encounter Care Teams Inking Machine Tender Relationship Specialty Start Date End Date Diego Morfin MD [address] [place] [address] PCP - General 06/01/00 documented as of this encounter
--- OUTSIDE RECORDS SUMMARY | 2024-02-28 01:53 | External Medical Summary | Summary of Care ---
Author Name Unknown Organization [facility] Address [address] [facility] [place] [address] Phone [phone] Care Team Providers Care Safemaker Name Role Phone Diego Morfin MD Primary Care Provider Encounter Details Date Type Department Care Team (Late st Contact Info) Description 12/20/2023 Population Health External Data Unspecified Department Allergies No known active allergiesdocumented as of this encounter (statuses as of 12/20/2023) Medications Medication Sig Dispensed Refills Start Date End Date Status 27-0.8 MG Oral Tablet Take 1 Tablet by mouth daily at noon. 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 Never true 09/06/2023 [place] Depression Scale Answer Date Recorded [place] Depression Scale Total 5 12/03/2023 The thought [...] Care Team (Late st Contact Info) Description 01/02/2024 1:45 PM EDT Office Visit Gynecology/Obstetrics [facility] [address] [place] [address] Emilie Santana CRNP [address] [place] [address] Nurse Sahq [facility] Return Radha [address] [place] [address] 01/15/2024 1:30 PM EDT Office Visit Gynecology/Obstetrics [facility] [address] [place] [address] Dacia Ndiaye CRNP [address] [place] [address] Nurse Shaq [facility] Return Radha [address] [place] [address] 01/29/2024 2:00 PM EDT Office Visit Gynecology/Obstetrics [facility] [address] [place] [address] Emilie Santana CRNP [address] [place] [address] Nurse Shaq [facility] Return Radha [address] [place] [address] 02/05/2024 1:30 PM EDT Office Visit Gynecology/Obstetrics [facility] [address] [place] [address] Dacia Ndiaye CRNP [address] [place] [address] Nurse Shaq [facility] Return Radha [address] [place] [address] 02/12/2024 2:00 PM EDT Office Visit Gynecology/Obstetrics [facility] [address] [place] [address] Emilie Santana CRNP [address] [place] [address] Nurse Shaq [facility] Return Ardha [address] [place] [address] Health Maintenance Due Date Last Done Comments [...] filedocumented as of this encounter Care Teams Safemaker Relationship Specialty Start Date End Date Diego Morfin MD [address] [facility] [address] [place] [address], [place] [address] PCP - General 06/01/00 documented as of this encounter
--- OUTSIDE RECORDS SUMMARY | 2024-02-28 01:53 | External Medical Summary | Summary of Care ---
Author Name Unknown Organization [facility] Address [address] [facility] [place] [address] Phone [phone] Care Team Providers Care Grit Blaster Name Role Phone Diego Morfin MD Primary Care Provider Reason for Visit * Reason Comments Return Visit Encounter Details Date Type Department Care Team (Late st Contact Info) Description 01/02/2024 1:45 PM EDT Office Visit Gynecology/Obstetri vargas New [address] [place] [address] Emilie Santana CRNP [address] [place] [address] Nurse Shaq [facility] Return Radha [address] [place] [address] Multigravida of advanced maternal age in third trimester*; Late care; Obesity in , antepartum; Intrauterine synechiae; Health counseling; High-risk in third trimester Allergies No known active allergiesdocumented as of this encounter (statuses as of 01/02/2024) Medications Medication Sig Dispensed Refills Start Date End Date Status 27-0.8 MG Oral Tablet Take 1 Tablet by mouth daily at noon. 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 Never true 09/06/2023 [place] Depression Scale Answer Date Recorded [place] Depression Scale Total 5 12/03/2023 The thought [...] Reading Time Taken Comments Blood Pressure 106/64 01/02/2024 1:46 PM EDT Pulse - - Temperature - - Respiratory Rate - - Oxygen Saturation - - Inhaled Oxygen Concentration - - Weight 102.5 kg (226 lb) 01/02/2024 1:46 PM EDT Height 172.7 cm (5' 8") 01/02/2024 1:46 PM EDT Body Mass Index 34.36 01/02/2024 1:46 PM EDT documented in this encounter Progress Notes * Emilie Santana CRNP - 01/02/2024 1:57 PM EDT 32w5d No concerns. Baby is active. Denies contractions, bleeding, LOF. KEILA Ramos * Ann Monk LPN - 01/02/2024 1:46 PM EDT 32w5d Denies any concerns documented in this encounter Plan of Treatment Upcoming Encounters Date Type Department Care Team (Late st Contact Info) Description 01/15/2024 1:30 PM EDT Office Visit Gynecology/Obstetrics Shameka New [address] [place] [address] Dacia Ndiaye CRNP [address] [place] [address] Nurse Shaq [facility] Return Radha [address] [place], [place] [address] 01/29/2024 2:00 PM EDT Office Visit Gynecology/Obstetrics Shameka New [address] [place], [place] [address] Emilie Santana CRNP [address] [place], [place] [address] Nurse Shaq [facility] Return Radha [address] [place], [place] [address] 02/05/2024 1:30 PM EDT Office Visit Gynecology/Obstetrics Shameka New [address] [place] [address] Dacia Ndiaye CRNP [address] [place] [address] Nurse Shaq [facility] Return Radha [address] [place], [place] [address] 02/12/2024 2:00 PM EDT Office Visit Gynecology/Obstetrics Shameka New [address] [place] [address] Emilie Santana CRNP [address] [place] [address] Nurse Shaq [facility] Return Radha [address] [place], [place] [address] Health Maintenance Due Date Last Done Comments [...] trimester documented in this encounter Care Teams Grit Blaster Relationship Specialty Start Date End Date Diego Morfin MD [address] [place] [address], [place] [address] PCP - General 06/01/00 documented as of this encounter
--- OUTSIDE RECORDS SUMMARY | 2024-02-28 01:53 | External Medical Summary | Summary of Care ---
Author Name Unknown Organization [facility] [address] [facility] [address] Phone [phone] Care Team Providers Care Tire Technician Name Role Phone Diego Morfin MD Primary Care Provider Reason for Visit * Reason Onset Date Comments Return Visit Immunizations 12/19/2023 Encounter Details Date Type Department Care Team (Late st Contact Info) Description 12/19/2023 1:30 PM EDT Office Visit Gynecology/Obstetri vargas New [address] [facility] [place] [address] Daica Ndiaye CRNP [address] [place] [address] Nurse Angi [facility] Return Radha [address] [place] [address] High-risk in third trimester*; Late care; Multigravida of advanced maternal age in third trimester; Obesity in , antepartum; Intrauterine synechiae; Health counseling; Need for prophylactic vaccination with combined tesnuozoat-nnpcbeq-iy rtussis (DTP) vaccine Allergies No known active allergiesdocumented as of this encounter (statuses as of 12/19/2023) Medications Medication Sig Dispensed Refills Start Date End Date Status 27-0.8 MG Oral Tablet Take 1 Tablet by mouth daily at noon. 0 Active documented as of this encounter (statuses as of 12/19/2023) Active Problems Problem Noted Date Diagnosed Date [...] as of this encounter (statuses as of 12/19/2023) Immunizations Name Administration Dates Next Due Seasonal [...] money to get more. Never true 09/06/2023 [place] Depression Scale Answer Date Recorded [place] Depression Scale Total 5 12/03/2023 The thought [...] Sign Reading Time Taken Comments Blood Pressure 112/68 12/19/2023 1:36 PM EDT Pulse - - Temperature - - Respiratory Rate - - Oxygen Saturation - - Inhaled Oxygen Concentration - - Weight 100.7 kg (222 lb) 12/19/2023 1:36 PM EDT Height - - Body Mass Index 33.75 11/16/2023 1:56 PM EST documented in this encounter Patient Instructions * Patient Instructions* Annie Flanagan LPN - 12/19/2023 1:37 PM EDT ~~PATIENT INSTRUCTIONS FOR TDAP VACCINE~~ Possible side effects of TDAP vaccine, (tetanus shot), are usually mild and can include: 1. Soreness or redness at injection site 2. Low grade fever 3. Body aches You may use a fever / pain reducing medication as needed for these symptoms. LET YOUR DOCTOR KNOW IMMEDIATELY IF YOU HAVE DIFFICULTY BREATHING OR SWALLOWING, EXPERIENCE ITCHINGOF FEET OR HANDS, HAVE SWELLING OF EYES, FACE OR INSIDE OF NOSE. documented in this encounter Progress Notes * Dacia Ndiaye CRNP - 12/19/2023 1:41 PM EDT 30w5d Doing well, baby is active. No leaking/bleeding or regular ctx. Tdap today. Does not need a breast pump rx. 2 week return KEILA Goel * Annie Flanagan LPN - 12/19/2023 1:36 PM EDT 30w5d Denies vaginal bleeding/rom + movement Tdap today No new concerns documented in this encounter Nursing Notes * Aurora Lopez RN - 12/19/2023 1:45 PM EDT Patient seen by [facility] Associate Software Developer. Patient denies any questions or concerns. Patient here for TDAP injection. Patient doing well no complaints. Injection given IM as ordered. Patient tolerated well. Patient to follow up as directed. Patient instructed to call if any complications. Patient verbalized understanding of instructions given and her follow up appt for 2 wks Injection site: Right Deltoid Medication Source: Dispensed stock medication Aurora Lopez RN documented in this encounter Plan of Treatment Upcoming Encounters Date Type Department Care Team (Late st Contact Info) Description 01/02/2024 1:45 PM EDT Office Visit Gynecology/Obstetrics Shameka New [address] [place] [address] Emilie Santana CRNP [address] [place] [address] Nurse Shaq [facility] Return Radha [address] [place] [address] 01/15/2024 1:30 PM EDT Office Visit Gynecology/Obstetrics Shameka New [address] [place] [address] Dacia Ndiaye CRNP [address] [place] [address] Nurse Angi [facility]nings[facility] Return Radha [address] [place] [address] 01/29/2024 2:00 PM EDT Office Visit Gynecology/Obstetrics Shameka New [address] [place] [address] Emilie Santana CRNP [address] [place] [address] Nurse Shaq [facility] Return Radha [address] [place] [address] 02/05/2024 1:30 PM EDT Office Visit Gynecology/Obstetrics Shameka New [address] [place] [address] Dacia Ndiaye CRNP [address] [place] [address] Nurse Shaq [facility] Return Radha [address] [place] [address] 02/12/2024 2:00 PM EDT Office Visit Gynecology/Obstetrics Shameka New [address] [place] [address] Emilie Santana CRNP [address] [place] [address] Nurse Shaq [facility] Return Radha [address] [place] [address] Health Maintenance Due Date Last Done Comments [...] Intrauterine synechiae Health counseling Other specified counseling Need for prophylactic vaccination with combined hqjuljrczg-jgrwchu-flqvlzyvg (DTP) vaccine documented in this encounter Care Teams Tire Technician Relationship Specialty Start Date End Date Diego Morfin MD [address] [place] [address] PCP - General 06/01/00 documented as of this encounter
--- OUTSIDE RECORDS SUMMARY | 2024-02-28 01:53 | External Medical Summary | Summary of Care ---
Author Name Unknown Organization [facility] Address [address] [facility] [place] [address] Phone [phone] Care Team Providers Care Steel Rule Die Maker Apprentice Name Role Phone Diego Morfin MD Primary Care Provider Reason for Visit * Reason Comments Return Visit Encounter Details Date Type Department Care Team (Late st Contact Info) Description 01/29/2024 2:00 PM EDT Office Visit Gynecology/Obstetri vargas New [address] [place] [address] Emilie Santana CRNP [address] [place] [address] Nurse Shaq [facility] Return Radha [address] [place] [address] Multigravida of advanced maternal age in third trimester*; Late care; Obesity in , antepartum; Intrauterine synechiae; Health counseling; High-risk in third trimester Allergies No known active allergiesdocumented as of this encounter (statuses as of 01/29/2024) Medications Medication Sig Dispensed Refills Start Date End Date Status 27-0.8 MG Oral Tablet Take 1 Tablet by mouth daily at noon. 0 Active documented as of this encounter (statuses as of 01/29/2024) Active Problems Problem Noted Date Diagnosed Date [...] or questions 01/29/2024 Nicole Meredith RN 01/29/2024 Intrauterine synechiae 10/23/2023 Overview: Noted at 22 wks, will repeat scan 28 wks Late care 09/19/2023 Overview: Initiated at 18 weeks AMA (advanced maternal age) multigravida 35+ 11/2023 Obesity in , antepartum 09/19/2023 Overview: Class 1 Estimated Date of Delivery Comme nts Yes 02/22/2024 Based on last me nstrual period of 05/18/2023 documented as of this encounter (statuses as of 01/29/2024) Immunizations Name Administration Dates Next Due Seasonal [...] money to get more. Never true 09/06/2023 [place] Depression Scale Answer Date Recorded [place] Depression Scale Total 4 01/15/2024 The thought [...] Sign Reading Time Taken Comments Blood Pressure 104/62 01/29/2024 2:19 PM EDT Pulse - - Temperature - - Respiratory Rate - - Oxygen Saturation - - Inhaled Oxygen Concentration - - Weight 102.1 kg (225 lb) 01/29/2024 2:19 PM EDT Height 172.7 cm (5' 8") 01/29/2024 2:19 PM EDT Body Mass Index 34.21 01/29/2024 2:19 PM EDT documented in this encounter Progress Notes * Emilie Santana CRNP - 01/29/2024 2:27 PM EDT 36w4d No concerns. Baby is active. Denies contractions, bleeding, LOF. GBS today. Manager Pediatric Documentation Provider requested php engineer. Name of php engineer: KEILA Van * Ann Monk LPN - 01/29/2024 2:19 PM EDT 36w4d Needs gbs documented in this encounter Plan of Treatment Upcoming Encounters Date Type Department Care Team (Late st Contact Info) Description 02/05/2024 1:30 PM EDT Office Visit Gynecology/Obstetrics Shameka New [address] [place] [address] Dacia Ndiaye CRNP [address] [place] [address] Nurse Shaq [facility] Return Radha [address] [place] [address] 02/12/2024 2:00 PM EDT Office Visit Gynecology/Obstetrics Shameka New [address] [place] [address] Emilie Santana CRNP [address] [place] [address] Nurse Shaq [facility] Return Radha [address] [place] [address] Pending Results Name Type Priority Associated Diagnoses Date /Time GROUP B STREP CULTURE/PCR Lab Routine Multigravida of advanced maternal age in third trimester 01/29/2024 2:26 PM EDT Scheduled Orders Name Type Priority Associated Diagnoses Orde r Schedule GROUP B STREP CULTURE/PCR Lab Routine Multigravida of advanced maternal age in third trimester Expected: 01/29/2024, Expires: 01/28/2025 Health Maintenance Due Date Last Done Comments [...] trimester documented in this encounter Care Teams Steel Rule Die Maker Apprentice Relationship Specialty Start Date End Date Diego Morfin MD [address] [address] PCP - General 06/01/00 documented as of this encounter
--- OUTSIDE RECORDS SUMMARY | 2024-02-28 01:53 | External Medical Summary ---
Author Name Unknown Address Unknown Organization [id number]:LABORATORY [facility] [place] - [address] [facility] [address] Laboratory Report Ordering Provider Test Date Status PAM MALIK 01/29/2024 14:26:20 Final Observation Date Value Abnormality Reference (Units ) Status Streptococcus agalactiae DNA [Presence] in Specimen by GERMAIN with probe detection 01/29/2024 14:26:20 Negative Negative Final No Group B Streptococcus det ected by culture-enhanced PCR (amplified probe).
The collection of vaginal/rectal swab specimen combinations (FDA approved specimen type) is optimal for the detection of Group B Streptococcus. Single source collection (vaginal only or rectal only) or alternate specimen sources may lead to false negative results. Performing Location LABORATORY [facility] - [address] [facility] [address]
--- OUTSIDE RECORDS SUMMARY | 2024-02-28 01:53 | External Medical Summary | Summary of Care ---
Author Name Unknown Organization [facility] Address [address] [facility] [place] [address] Phone [phone] Care Team Providers Care Photographer News Name Role Phone Diego Morfin MD Primary Care Provider Reason for Visit * Reason Comments Return Visit Encounter Details Date Type Department Care Team (Late st Contact Info) Description 01/29/2024 2:00 PM EDT Office Visit Gynecology/Obstetri vargas New [address] [place] [address] Emilie Santana CRNP [address] [place] [address] Nurse Shaq [facility] Return Radha [address] [place] [address] Multigravida of advanced maternal age in third [...] money to get more. Never true 09/06/2023 [place] Depression Scale Answer Date Recorded [place] Depression Scale Total 4 01/15/2024 The thought [...] active. Denies contractions, bleeding, LOF. GBS today. Director Volunteer Services Documentation Provider requested newspaper subscription solicitor. Name of newspaper subscription solicitor: KEILA Van * Ann Monk LPN - 01/29/2024 2:19 PM EDT 36w4d Needs gbs documented in this encounter Plan of Treatment Upcoming Encounters Date Type Department Care Team (Late st Contact Info) Description 02/05/2024 1:30 PM EDT Office Visit Gynecology/Obstetrics Shameka [facility] [address] [place] [address] Dacia Ndiaye CRNP [address] [place] [address] Nurse Shaq [facility] Return [facility] [address] [place] [address] 02/12/2024 2:00 PM EDT Office Visit Gynecology/Obstetrics Shameka [facility] [address] [place] [address] Emilie Santana CRNP [address] [place] [address] Nurse Shaq [facility] Return [facility] [address] [place] [address] Pending Results Name Type Priority Associated Diagnoses [...] trimester documented in this encounter Care Teams Photographer News Relationship Specialty Start Date End Date Diego Morfin MD [address] [facility] [place] [id number] PCP - General 06/01/00 documented as of this encounter
--- OUTSIDE RECORDS SUMMARY | 2024-02-28 01:54 | External Medical Summary ---
Author Name Unknown Address Unknown Organization [id number]:LABORATORY [facility] - [address] [place] [address] Laboratory Report Ordering Provider Test Date Status PAM MALIK 12/03/2023 07:14:07 Final Observation Date Value Abnormality Reference (Units ) Status WBC, Total 12/03/2023 07:14:07 8.29 4.00-10.8 0 (K/uL) Final RBC 12/03/2023 07:14:07 4.43 3.85-5.15 (M/uL) Final Hemoglobin 12/03/2023 07:14:07 13.4 12.0-15.3 (g/dL) Final Anemia reflex testing trigge rs on a HGB < 12.0 for Females and HGB < 13.0 for Males in accordance with the WHO Anemia Guidelines HCT 12/03/2023 07:14:07 41.2 36.0-45.2 (%) Final MCV 12/03/2023 07:14:07 93.0 81.5-97.5 (fL) Final MCH 12/03/2023 07:14:07 30.2 27.0-34.0 (pg) Final MCHC 12/03/2023 07:14:07 32.5 32.0-36.0 (g/dL) Final RDW 12/03/2023 07:14:07 13.2 11.5-15.5 (%) Final Platelets 12/03/2023 07:14:07 164 140-400 (K /uL) Final MPV 12/03/2023 07:14:07 14.0 6.6-11.1 ( fL) Final Nucleated erythrocytes/100 leukocytes [Ratio] in Blood by Automated count 12/03/2023 07:14:07 0 <=0 (/100 WBCs) Fi nal Performing Location LABORATORY [facility] - [address] [facility] [place] [address]
--- OUTSIDE RECORDS SUMMARY | 2024-02-28 01:54 | External Medical Summary ---
Author Name Unknown Address Unknown Organization [id number]:LABORATORY [facility] - [address] [place] [address] Laboratory Report Ordering Provider Test Date Status PAM MALIK 12/03/2023 08:19:38 Final Observation Date Value Abnormality Reference (Units ) Status Glucose [Mass/volume] in Serum or Plasma --1 hour post dose glucose 12/03/2023 08:19:38 108 70-179 (mg/dL) Final Performing Location LABORATORY [facility] - [address] [place] [address]
--- OUTSIDE RECORDS SUMMARY | 2024-02-28 01:54 | External Medical Summary | Summary of Care ---
Author Name Unknown Organization [facility] Address [address] [facility] [place] [address] Phone [phone] Care Team Providers Care Copra Sampler Name Role Phone Diego Morfin MD Primary Care Provider Reason for Visit * Reason Comments Outpatient Testing Encounter Details Date Type Department Care Team (Late st Contact Info) Description 12/03/2023 7:20 AM EDT Laboratory Laboratory, [facility] [address] [place] [address] [facility] [address] [place] [address] Multigravida of advanced maternal age in second [...] drink = 0.6 oz pur e alcohol) Hunger Vital Sign Answer Date Recorded Within the past 12 months, y ou worried that your food would run out before you got the money to buy more. Never true 09/06/20 23 Within the past 12 months, t he food you bought just didn't last and you didn't have money to get more. Never true 09/06/2023 [place] Depression Scale Answer Date Recorded [place] Depression Scale Total 5 09/19/2023 The thought of harming myself has occurred to me . Never 09/19/2023 Estimated Date of Delivery Comme nts Yes [...] Team (Late st Contact Info) Description 12/03/2023 8:15 AM EDT Imaging Radiology [address] [place] [id number] Multigravida of advanced maternal age in second trimester; Obesity in , antepartum; Intrauterine synechiae 12/03/2023 9:00 AM EDT Office Visit Gynecology/Obstetri vargas [facility] [address] [place] [address] Zoe Gibbs PA-C [address] [place] [address] Nurse Shaq [facility] Return Radha [address] [place] [address] Pending Results Name Type Priority Associated Diagnoses [...] 12/03/2023 7:14 AM EDT 100-G GESTATIONAL GLUCOSE, FASTING Lab Routine Multigravida of advanced maternal age [...] in second trimester 12/03/2023 7:14 AM EDT Scheduled Orders Name Type Priority Associated Diagnoses Orde r Schedule 100-G GESTATIONAL GLUCOSE, 1 HOUR Lab Routine Multigravida of advanced maternal age in second trimester Ordered: 12/03/2023 Health Maintenance Due Date Last Done Comments Diabetes Screening 1985 Depression Screening 1997 DTaP,Tdap,and Td Vaccines (1 - Tdap) 2004 Hepatitis B (1 of 3 - 19+ 3-dose series) 2004 COVID-19 Vaccine (2022-2 4 season) 2023 Pap Smear 09/19/2026 09/19/2023 Cervical Cancer Screening [...] of advanced maternal age in second trimester Multigravida of advanced maternal age in second trimester Obesity in , antepartum Obesity complicating , childbirth, or the puerperium, antepartum condition or complication Intrauterine synechiae documented in this encounter Care Teams Copra Sampler Relationship Specialty Start Date End Date Diego Morfin MD [facility] [address] [address] PCP - General 06/01/00 documented as of this encounter
--- OUTSIDE RECORDS SUMMARY | 2024-02-28 01:54 | External Medical Summary | Summary of Care ---
Author Name Unknown Organization [facility] Address [address] [facility] [place] [address] Phone [phone] Care Team Providers Care Double End Tenoner Setter Name Role Phone Diego Morfin MD Primary Care Provider Reason for Visit * Reason Comments Return Visit Encounter Details Date Type Department Care Team (Late st Contact Info) Description 11/16/2023 2:00 PM EST Office Visit Gynecology/Obstetri vargas New [address] [place] [address] Emilie Santana CRNP [address] [place] [address] Nurse Shaq [facility] Return Radha [address] [place] [address] Multigravida of advanced maternal age in second trimester*; Normal intrauterine , antepartum; Late care; Obesity in , antepartum; Intrauterine synechiae Allergies No known active allergiesdocumented as of this encounter (statuses as of 11/16/2023) Medications Medication Sig Dispensed Refills Start Date End Date Status 27-0.8 MG Oral Tablet Take 1 Tablet by mouth daily at noon. 0 Active documented as of this encounter (statuses as of 11/16/2023) Active Problems Problem Noted Date Diagnosed Date Intrauterine synechiae 10/23/2023 Overview: Noted at 22 wks, will repeat scan 28 wks Normal 09/19/2023 Late care 09/19/2023 Overview: Initiated at 18 weeks AMA (advanced maternal age) multigravida 35+ 11/2023 Obesity in , antepartum 09/19/2023 Overview: Class 1 Estimated Date of Delivery Comme nts Yes 02/22/2024 Based on last me nstrual period of 05/18/2023 documented as of this encounter (statuses as of 11/16/2023) Immunizations Name Administration Dates Next Due Seasonal [...] money to get more. Never true 09/06/2023 [place] Depression Scale Answer Date Recorded [place] Depression Scale Total 5 09/19/2023 The thought [...] Sign Reading Time Taken Comments Blood Pressure 108/68 11/16/2023 1:56 PM EST Pulse - - Temperature - - Respiratory Rate - - Oxygen Saturation - - Inhaled Oxygen Concentration - - Weight 98.9 kg (218 lb) 11/16/2023 1:56 PM EST Height 172.7 cm (5' 8") 11/16/2023 1:56 PM EST Body Mass Index 33.15 11/16/2023 1:56 PM EST documented in this encounter Progress Notes * Emilie Santana CRNP - 11/16/2023 2:23 PM EST 26w Feeling well overall. Noticing some wetness to underwear, but not persistent. Baby is active. No contractions or bleeding. 3hr GTT, growth u/s with next visit. KEILA Ramos * Ann Monk LPN - 11/16/2023 1:56 PM EST 26W0D documented in this encounter Plan of Treatment Upcoming Encounters Date Type Department Care Team (Late st Contact Info) Description 12/03/2023 7:20 AM EDT Laboratory Laboratory, [facility] [address] [facility] [place] [phone] Nadine News [address] [facility] [place] [address] 12/03/2023 8:15 AM EDT Imaging Radiology [facility] [address] [facility] [place] [address] 12/03/2023 9:00 AM EDT Office Visit Gynecology/Obstetrics [facility] [address] [facility] [place] [address] Zoe Gibbs PA-C [address] [place] [address] Nurse Shaq [facility]nings Return [facility] [address] [facility] [place] [address] Scheduled Orders Name Type Priority Associated Diagnoses Orde r Schedule GESTATIONAL GLUCOSE TOLERANCE, 3 HOUR Lab Routine Multigravida of advanced maternal age in second trimester Expected: 11/23/2023 (Approximate), Expires: 11/15/2024 CBC WITH WBC DIFFERENTIAL AND ANEMIA REFLEX WORKUP Lab Routine Multigravida of advanced maternal age in second trimester Expected: 11/23/2023 (Approximate), Expires: 11/15/2024 SYPHILIS ANTIBODY SCREEN WITH REFLEX TO RPR Lab Routine Multigravida of advanced maternal age in second trimester Expected: 11/23/2023 (Approximate), Expires: 11/15/2024 PREG FOLLOW-UP EACH FETUS Medical Imaging Routine Multigravida of advanced maternal age in second trimester Obesity in , antepartum Intrauterine synechiae Expected: 11/30/2023 (Approximate), Expires: 12/16/2024 Health Maintenance Due Date Last Done Comments Diabetes Screening 1985 Depression Screening 1997 DTaP,Tdap,and Td Vaccines (1 - Tdap) 2004 Hepatitis B (1 of 3 - 19+ 3-dose series) 2004 COVID-19 Vaccine ( - 2022-2 4 season) 2023 Pap Smear 09/19/2026 09/19/2023 [...] Multigravida of advanced maternal age in second trimester- Primary Normal intrauterine , antepartum Late care Insufficient care Obesity in , antepartum Obesity complicating , childbirth, or the puerperium, antepartum condition or complication Intrauterine synechiae documented in this encounter Care Teams Double End Tenoner Setter Relationship Specialty Start Date End Date Diego Morfin MD [address] [place] [address], [place] [address] PCP - General 06/01/00 documented as of this encounter
--- OUTSIDE RECORDS SUMMARY | 2024-02-28 01:54 | External Medical Summary ---
Author Name Unknown Address Unknown Organization [id number]:[facility]ATORY [facility] [place] [address] [facility] [id number] Laboratory Report Ordering Provider Test Date Status PAM MALIK 12/03/2023 07:14:07 Final Observation Date Value Abnormality Reference (Units ) Status Treponema pallidum Ab [Presence] in Serum by Immunoassay 12/03/2023 07:14:07 Nonreactive Nonreactive Final No serologic evidence of syp hilis. No additional testing clinicially indicated at this time. Consider repeat testing in 2-4 weeks if acute or primary syphilis is suspected. Performing Location [facility]ATORY [facility] [place] [facility] [address] [facility] [address]
--- OUTSIDE RECORDS SUMMARY | 2024-02-28 01:54 | External Medical Summary ---
Author Name Unknown Address Unknown Organization [id number]:LABORATORY [facility] 57-10 - [address] [place] [id number] Laboratory Report Ordering Provider Test Date Status KIRA SALASKUSUM 10/26/2023 11:08:35 Final Observation Date Value Abnormality Reference (Units ) Status Glucose [Mass/volume] in Serum or Plasma --3 hours post dose glucose 10/26/2023 11:08:35 63 Below low normal 70-139 (mg/dL) Final Performing Location LABORATORY GAB SANT[facility] 57-1 0 - [address] [place] [id number]
--- OUTSIDE RECORDS SUMMARY | 2024-02-28 01:54 | External Medical Summary ---
Author Name Unknown Address Unknown Organization [id number]:LABORATORY [facility] 57-10 - [address] [place] [id number] Laboratory Report Ordering Provider Test Date Status ISABELLA SALAS 10/26/2023 09:12:47 Final Observation Date Value Abnormality Reference (Units ) Status Glucose [Mass/volume] in Serum or Plasma --1 hour post dose glucose 10/26/2023 09:12:47 117 70-179 (mg/dL) Final Performing Location LABORATORY [facility] MAX 57-1 0 - [address] [place] [id number]
--- OUTSIDE RECORDS SUMMARY | 2024-02-28 01:54 | External Medical Summary ---
Author Name Unknown Address Unknown Organization K0G:LABORATORY [facility] MAX 57-10 - [address] [place] [id number] Laboratory Report Ordering Provider Test Date Status PAM MALIK 12/03/2023 09:21:23 Final Observation Date Value Abnormality Reference (Units ) Status Glucose, 2-hr post glucose challenge 12/03/2023 09:21:23 94 70-154 (mg/dL) Final Performing Location LABORATORY [facility] MAX 57-1 0 - [address] [place] [id number]
--- OUTSIDE RECORDS SUMMARY | 2024-02-28 01:54 | External Medical Summary | Summary of Care ---
Author Name Unknown Organization [facility] [address] [facility] [address] Phone [phone] Care Team Providers Care Comb Tender Name Role Phone Diego Morfin MD Primary Care Provider Reason for Visit * Reason Comments Return Visit Encounter Details Date Type Department Care Team (Late st Contact Info) Description 11/16/2023 2:00 PM EST Office Visit Gynecology/Obstetri vargas New [address] [place] [address] Emilie Santana CRNP [address] [place] [address] Nurse Shaq [facility] Return Radha [address] [place] [address] Multigravida of advanced maternal age in second [...] money to get more. Never true 09/06/2023 [place] Depression Scale Answer Date Recorded [place] Depression Scale Total 5 09/19/2023 The thought [...] Description 12/03/2023 7:20 AM EDT Laboratory Laboratory, [facility] [address] [place] [phone] [facility] [place] [address] 12/03/2023 8:15 AM EDT Imaging Radiology [facility] 132 [place] [address] 12/03/2023 9:00 AM EDT Office Visit Gynecology/Obstetrics [facility] [address] [place] [address] Zoe Gibbs PA-C [address] [place] [address] Nurse Shaq [facility] Return [address]ha [address] [place] [address] Scheduled Orders Name Type Priority Associated Diagnoses [...] Vaccine (1 - 2022-2 4 season) 2023 Pap Smear [...] synechiae documented in this encounter Care Teams Comb Tender Relationship Specialty Start Date End Date Diego Morfin MD 6 [facility] [place] [address] PCP - General 06/01/00 documented as of this encounter
--- OUTSIDE RECORDS SUMMARY | 2024-02-28 01:54 | External Medical Summary ---
Author Name Unknown Address Unknown Organization K0G:LABORATORY [facility] MAX 57-10 - [address] [place] [id number] Laboratory Report Ordering Provider Test Date Status KIRA SALASKUSUM 10/26/2023 10:15:05 Final Observation Date Value Abnormality Reference (Units ) Status Glucose, 2-hr post glucose challenge 10/26/2023 10:15:05 77 70-154 (mg/dL) Final Performing Location LABORATORY [facility] MAX 57-1 0 - [address] [place] [id number]
--- OUTSIDE RECORDS SUMMARY | 2024-02-28 01:54 | External Medical Summary | Summary of Care ---
Author Name Unknown Organization [facility] Address [address] [facility] [place] [address] Phone [phone] Care Team Providers Care Passenger Service Agent Name Role Phone Diego Morfin MD Primary Care Provider Reason for Visit * Reason Comments Outpatient Testing Encounter Details Date Type Department Care Team (Late st Contact Info) Description 10/26/2023 8:10 AM EST Laboratory Laboratory, [facility] [phone] [facility] [address] Elevated glucose tolerance test Allergies No known active allergiesdocumented as of this encounter (statuses as of 10/26/2023) Medications Medication Sig Dispensed Refills Start Date End Date Status 27-0.8 MG Oral Tablet Take 1 Tablet by mouth daily at noon. 0 Active documented as of this encounter (statuses as of 10/26/2023) Active Problems Problem Noted Date Diagnosed Date [...] as of this encounter (statuses as of 10/26/2023) Immunizations Name Administration Dates Next Due Seasonal [...] money to get more. Never true 09/06/2023 [place] Depression Scale Answer Date Recorded [place] Depression Scale Total 5 09/19/2023 The thought [...] Description 11/16/2023 2:00 PM EST Office Visit Gynecology/Obstetrics [facility] New [address] [place] [address] Emilie Santana CRNP [address] [place] [address] Nurse Shaq [facility] Return Radha [address] [place] [address] Pending Results Name Type Priority Associated Diagnoses Date /Time GESTATIONAL GLUCOSE TOLERANCE, 3 HOUR Lab Routine Elevated glucose tolerance test 10/26/2023 8:10 AM EST 100-G GESTATIONAL GLUCOSE, 3 HOUR Lab Routine Elevated glucose tolerance test 10/26/2023 11:08 AM EST Health Maintenance Due Date Last Done Comments Diabetes Screening 1985 Hepatitis B (1 of 3 - 3-dose series) 1985 COVID-19 Vaccine (#1) 06/19/1986 Depression Screening 1997 DTaP,Tdap,and Td Vaccines (1 - Tdap) 2004 Pap Smear 09/19/2026 09/19/2023 Cervical Cancer Screening [...] Comments 100-G GESTATIONAL GLUCOSE, 2 HOUR Routine 10/26/2023 10:15 AM EST Elevated glucose tolerance test 100-G GESTATIONAL GLUCOSE, 1 HOUR Routine 10/26/2023 9:12 AM EST Elevated glucose tolerance test 100-G GESTATIONAL GLUCOSE, FASTING Routine 10/26/2023 8:10 AM EST Elevated glucose tolerance test documented in this encounter Results * 100-G GESTATIONAL GLUCOSE, 2 HOUR (10/26/2023 10:15 AM EST) 100-g Gestational Glucose, 2 Hour 77 70 - 154 mg/dL 10/26/2023 11:08 AM EST LABORATORY [facility] 57-10 Blood Venous blood specimen / Unknown Venipuncture / Unknown 10/26/2023 10:15 AM EST 10/26/2023 10:15 AM EST Dacia PEDRAZA LAB BLOOD O RDERABLES LABORATORY [facility] 57-10 [address] [place] [address] * 100-G GESTATIONAL GLUCOSE, 1 HOUR (10/26/2023 9:12 AM EST) 100-g Gestational Glucose, 1 Hour 117 70 - 179 mg/dL 10/26/2023 10:19 AM EST LAB[facility]ATORY [facility] 57-10 Blood Venous blood specimen / Unknown Venipuncture / Unknown 10/26/2023 9:12 AM EST 10/26/2023 9:12 AM EST Dacia PEDRAZA LAB BLOOD O RDERABLES Performing Organization Address [facility] Co de Phone Number LABORATORY [facility] 57-10 132 [place] [address] * 100-G GESTATIONAL GLUCOSE, FASTING (10/26/2023 8:10 AM EST) 100-g Gestational Glucose, Fasting 83 70 - 94 mg/dL 10/26/2023 8:42 AM EST LAB[facility]ATORY [facility] 57-10 Blood Venous blood specimen / Unknown Venipuncture / Unknown 10/26/2023 8:10 AM EST 10/26/2023 8:10 AM EST Narrative LABORATORY [facility] 57-10 - 10/26/2023 8:42 AM EST Based on ACOG guideline, gestational diabetes mellitus is diagnosed when any of the following is met: Fasting is greater than or equal to 95 mg/dL 1 hour is greater than or equal to 180 mg/dL 2 hour is greater than or equal to 155 mg/dL 3 hour is greater than or equal to 140 mg/dL Dacia PEDRAZA LAB BLOOD O RDERABLES LABORATORY [facility] 57-10 [address] [place] [address] documented in this encounter Visit Diagnoses Diagnosis Elevated glucose tolerance test Impaired glucose tolerance test documented in this encounter Care Teams Passenger Service Agent Relationship Specialty Start Date End Date Diego Morfin MD [address] [facility] [address] [place] [address] PCP - General 06/01/00 documented as of this encounter
--- OUTSIDE RECORDS SUMMARY | 2024-02-28 01:54 | External Medical Summary ---
Author Name Unknown Address Unknown Organization K0G:LAB[facility]ATORY [facility] - [address] [place] [id number] Laboratory Report Ordering Provider Test Date Status HELENAPAM 12/03/2023 07:14:07 Final Based on ACOG guideline, ges tational diabetes mellitus is diagnosed when any of the following is met:
Fasting is greater than or equal to 95 mg/dL
1 hour is greater than or equal to 180 mg/dL
2 hour is greater than or equal to 155 mg/dL
3 hour is greater than or equal to 140 mg/dL Observation Date Value Abnormality Reference (Units ) Status Glucose, fasting 12/03/2023 07:14:07 83 70- 94 (mg/dL) Final Performing Location LABORATORY [facility] MAX 57-1 0 - [address] [place] [id number]
--- OUTSIDE RECORDS SUMMARY | 2024-02-28 01:54 | External Medical Summary ---
Author Name Unknown Address Unknown Organization K01:[place] [facility] [place] [address] [facility] [place] [address] Laboratory Report Ordering Provider Test Date Status PAM MALIK 12/03/2023 07:14:07 Final Observation Date Value Abnormality Reference (Units ) Status SYNC LEUKOCYTES IN BLOOD BY AUTOMATED COUNT 12/03/2023 07:14:07 8.29 4.00-10.80 (K/uL) Final Segs 12/03/2023 07:14:07 72.2 40.0-75.0 (%) Final Lymphs % 12/03/2023 07:14:07 18.9 18.0-42.0 (%) Final Monos 12/03/2023 07:14:07 7.2 1.0-11.0 (%) Final Eosinophils 12/03/2023 07:14:07 1.0 0.0-6.0 (%) Final Basos 12/03/2023 07:14:07 0.2 0.0-2.0 (%) Final Immature Granulocyte, Percent 12/03/2023 07:14:07 0.5 0.0-2.0 (%) Final Absolute Segs 12/03/2023 07:14:07 5.98 1.80-7.70 (K/uL) Final Lymphs, absolute 12/03/2023 07:14:07 1.57 1.00-4.80 (K/ul) Final Monos, Abs 12/03/2023 07:14:07 0.60 0.00-1.10 (K/uL) Final Eos, Abs 12/03/2023 07:14:07 0.08 0.00-0.70 (K/uL) Final Basos, Abs 12/03/2023 07:14:07 0.02 0.00-0.20 (K/uL) Final Immature Granulocytes, Number 12/03/2023 07:14:07 0.04 0.00-0.20 (K/uL) Final Performing Location [place] [facility] [place] [address] [facility] [address]
--- OUTSIDE RECORDS SUMMARY | 2024-02-28 01:54 | External Medical Summary ---
Author Name Unknown Address Unknown Organization K0G:LABORATORY [facility] MAX 57-10 - [address] [place] [id number] Laboratory Report Ordering Provider Test Date Status PAM MALIK 12/03/2023 10:25:00 Final Observation Date Value Abnormality Reference (Units ) Status Glucose [Mass/volume] in Serum or Plasma --3 hours post dose glucose 12/03/2023 10:25:00 63 Below low normal 70-139 (mg/dL) Final Performing Location LABORATORY [facility] 57-1 0 - [address] [place] [id number]
--- OUTSIDE RECORDS SUMMARY | 2024-02-28 01:54 | External Medical Summary | Summary of Care ---
Author Name Unknown Organization [facility] Address [address] [facility] [place] [address] Phone [phone] Care Team Providers Care Route Delivery Service Driver Name Role Phone Diego Morfin MD Primary Care Provider Reason for Visit * Reason Comments Outpatient Testing Encounter Details Date Type Department Care Team (Late st Contact Info) Description 12/03/2023 7:20 AM EDT Laboratory Laboratory, [facility] [address] [facility] [place] [address] [facility] [address] [facility] [place] [address] Multigravida of advanced maternal age in second [...] money to get more. Never true 09/06/2023 [place] Depression Scale Answer Date Recorded [place] Depression Scale Total 5 12/03/2023 The thought [...] 12/19/2023 1:30 PM EDT Office Visit Gynecology/Obstetrics [facility] 132 [facility] [place] [address] Backer, KEILA Joseph [address] [place] [address] Nurse Shaq [facility] Return [address]ha [address] [place] [address] Pending Results Name Type Priority Associated Diagnoses [...] advanced maternal age in second trimester 12/03/2023 10:42 AM EDT Health Maintenance Due Date Last [...] BLOOD ORDERABLES LABORATORY [facility] 57-10 132 [facility] [place] [address] * 100-G GESTATIONAL GLUCOSE, 1 HOUR (12/03/2023 8:19 AM EDT) 100-g Gestational Glucose, 1 Hour 108 70 - 179 mg/dL 12/03/2023 10:17 AM EDT LABORATORY [facility] 57-10 Blood Venous blood specimen / Unknown Venipuncture / Unknown 12/03/2023 8:19 AM EDT 12/03/2023 8:19 AM EDT Emilie Santana ELECTRICAL PROJECT ENGINEER LAB BLOOD ORDERABLES Performing Organization Address City/[facility]/ZIP Co de Phone Number LABORATORY [facility] 57-10 [address] [place] [address] * 100-G GESTATIONAL GLUCOSE, FASTING (12/03/2023 7:14 [...] or equal to 140 mg/dL Emilie Santana ELECTRICAL PROJECT ENGINEER LAB BLOOD ORDERABLES Performing Organization Address City/[facility]/ZIP Co de Phone Number LABORATORY [facility] 57-10 [address] [place] [address] documented in this encounter Visit Diagnoses Diagnosis Multigravida of advanced maternal age in second trimester documented in this encounter Care Teams Route Delivery Service Driver Relationship Specialty Start Date End Date Diego Morfin MD [address] [place] [address] PCP - General 06/01/00 documented as of this encounter
--- OUTSIDE RECORDS SUMMARY | 2024-02-28 01:54 | External Medical Summary | Summary of Care ---
Author Name Unknown Organization [facility] Address [address] [facility] [place] [address] Phone [phone] Care Team Providers Care Game Warden Name Role Phone Diego Morfin MD Primary Care Provider Reason for Visit * Reason Comments Outpatient Testing Encounter Details Date Type Department Care Team (Late st Contact Info) Description 12/03/2023 7:20 AM EDT Laboratory Laboratory, [facility] [phone] [facility] [address] Multigravida of advanced maternal age in second [...] money to get more. Never true 09/06/2023 [place] Depression Scale Answer Date Recorded [place] Depression Scale Total 5 09/19/2023 The thought [...] Team (Late st Contact Info) Description 12/03/2023 9:00 AM EDT Office Visit Gynecology/Obstetrics [address] [place] [address] Zoe Gibbs PA-C [address] [place] [address] Nurse Shaq Healthy [facility] Return [address]ha [address] [place] [address] Pending Results Name Type Priority Associated Diagnoses [...] 12/03/2023 7:14 AM EDT 100-G GESTATIONAL GLUCOSE, 1 HOUR Lab Routine Multigravida of advanced maternal age in second trimester 12/03/2023 8:19 AM EDT Scheduled Orders Name Type Priority Associated Diagnoses Orde r Schedule 100-G GESTATIONAL GLUCOSE, 2 HOUR Lab Routine Multigravida of advanced maternal [...] trimester documented in this encounter Care Teams Game Warden Relationship Specialty Start Date End Date Diego Morfin MD [address] [place] [address] [place] [address] PCP - General 06/01/00 documented as of this encounter
--- OUTSIDE RECORDS SUMMARY | 2024-02-28 01:54 | External Medical Summary | Summary of Care ---
Author Name Unknown Organization [facility] [address] [facility] [address] Phone [phone] Care Team Providers Care Training Coordinator Name Role Phone Diego Morfin MD Primary Care Provider Reason for Visit * Reason Comments Return Visit Encounter Details Date Type Department Care Team (Late st Contact Info) Description 11/16/2023 2:00 PM EST Office Visit Gynecology/Obstetri vargas New [address] [place] [address] Emilie Santana CRNP [address] [place] [address] Nurse Shaq [facility] Return [address]ha [address] [place] [address] Multigravida of advanced maternal age in second [...] money to get more. Never true 09/06/2023 [place] Depression Scale Answer Date Recorded [place] Depression Scale Total 5 09/19/2023 The thought [...] PM EST 26W0D documented in this encounter Nursing Notes * Nicole Meredith, RN - 11/16/2023 3:34 PM EST have you cut down with your smokingno have you quit no have you seen a extruder no have you seen a social science manager no are you receiving counseling no have you received dental care during your no are you enrolled in [place] planning to do you receive food stamps or [place] assistance no are you having problems with depression, receiving counseling or taking prescribed medications denie have you had little interest in doing things, or have you been bothered by feeling down, depressed,or hopeless denies documented in this encounter Plan of Treatment Upcoming Encounters Date Type Department Care Team (Late st Contact Info) Description 12/03/2023 7:20 AM EDT Laboratory Laboratory, [facility] [address] [place] [phone] Nadine [facility] [address] [place] [address] 12/03/2023 8:15 AM EDT Imaging Radiology [facility] [address] [place] [address] 12/03/2023 9:00 AM EDT Office Visit Gynecology/Obstetrics [place] [address] [address] [place] [address] Zoe Gibbs PA-C [address] [place] [address] Nurse Shaq [facility] Return [address] [place] [address] Scheduled Orders Name Type Priority Associated Diagnoses [...] synechiae documented in this encounter Care Teams Training Coordinator Relationship Specialty Start Date End Date Diego Morfin MD [address] [place] [address] PCP - General 06/01/00 documented as of this encounter
--- OUTSIDE RECORDS SUMMARY | 2024-02-28 01:54 | External Medical Summary ---
Author Name Unknown Address Unknown Organization K0G:LABORATORY [facility] 57-10 - [address] [place] [id number] Laboratory Report Ordering Provider Test Date Status ISABELLA SALAS 10/26/2023 08:10:10 Final Based on ACOG guideline, ges tational [...] Abnormality Reference (Units ) Status Glucose, fasting 10/26/2023 08:10:10 83 70- 94 (mg/dL) Final Performing Location LABORATORY [facility] 57-1 0 - [address] [place] [id number]
--- OUTSIDE RECORDS SUMMARY | 2024-02-28 01:54 | External Medical Summary | Summary of Care ---
Author Name Unknown Organization [facility] Address [address] [address] Phone [phone] Care Team Providers Care Light Technician Name Role Phone Diego Morfin MD Primary Care Provider Reason for Visit * Reason Comments Return Visit Encounter Details Date Type Department Care Team (Late st Contact Info) Description 12/03/2023 9:00 AM EDT Office Visit Gynecology/Obstetri vargas New [address] [place] [address] Zoe Gibbs PA-C [address] [place] [address] Nurse Shaq [facility] Return Radha [address] [place] [address] Normal in third trimester*; Late care; Multigravida of [...] money to get more. Never true 09/06/2023 Hurley Depression Scale Answer Date Recorded [place]ley Depression Scale Total 5 12/03/2023 The thought [...] Sign Reading Time Taken Comments Blood Pressure 116/70 12/03/2023 8:52 AM EDT Pulse - - Temperature - - Respiratory Rate - - Oxygen Saturation - - Inhaled Oxygen Concentration - - Weight 98.8 kg (217 lb 12.8 oz) 12/03/2023 8:52 AM EDT Height - - Body Mass Index 33.12 11/16/2023 1:56 PM EST documented in this encounter Progress Notes * Zoe Gibbs PA-C - 12/03/2023 9:04 AM EDT 28w3d Growth today: preliminary 20%ile, normal ROSA ISELA. Final report pending. Completing glucola today. Reviewed recommendations for TDaP, patient would like to defer until next visit. RTC in 2 week Zoe Gibbs PA-C documented in this encounter Nursing Notes * Nicole Meredith RN - 12/03/2023 8:54 AM EDT have you cut down with your smoking no have you quit no have you seen a night filler no have you seen a social work assistant no are you receiving counseling no have you received dental care during your no are you enrolled in [facility] has letter do you receive food stamps or monreal assistance denies are you having problems with depression, receiving counseling or taking prescribed medications yes have you had little interest in doing things, or have you been bothered by feeling down, depressed,or hopeless yes documented in this encounter Plan of Treatment Upcoming Encounters Date Type Department Care Team (Late st Contact Info) Description 12/19/2023 1:30 PM EDT Office Visit Gynecology/Obstetrics Shameka [place] [address] [place] [address] BackerDacia CRNP [address] [place] [address] Nurse Shaq [facility] Return Radha [address] [place] [address] Health Maintenance Due Date Last Done Comments [...] as of this encounter Visit Diagnoses Diagnosis Normal in third trimester- Primary Late care Insufficient care Multigravida of advanced maternal age in third trimester Obesity in , antepartum Obesity complicating , childbirth, or the puerperium, antepartum condition or complication Intrauterine synechiae Health counseling Other specified counseling documented in this encounter Care Teams Light Technician Relationship Specialty Start Date End Date Diego Morfin MD [address] [place] [address], [place] [address] PCP - General 06/01/00 documented as of this encounter
--- OUTSIDE RECORDS SUMMARY | 2024-02-28 01:54 | External Medical Summary | Summary of Care ---
Author Name Unknown Organization [facility] Address [address] [facility] [place] [address] Phone [phone] Care Team Providers Care Flat Bed Operator Name Role Phone Diego Morfin MD Primary Care Provider Reason for Visit * Reason Comments Outpatient Testing Encounter Details Date Type Department Care Team (Late st Contact Info) Description 12/03/2023 7:20 AM EDT Laboratory Laboratory, [facility] [address] [facility] [address] Multigravida of advanced maternal age in second [...] money to get more. Never true 09/06/2023 [place] Depression Scale Answer Date Recorded [place] Depression Scale Total 5 12/03/2023 The thought [...] 12/19/2023 1:30 PM EDT Office Visit Gynecology/Obstetrics [facility] 132 [facility] [place] [address] Backer, KEILA Joseph [address] [place] [address] Nurse hSaq Healthy Beginnings Return Radha [address] [place] [address] Pending Results Name Type Priority Associated Diagnoses [...] in second trimester 12/03/2023 8:19 AM EDT 100-G GESTATIONAL GLUCOSE, 2 HOUR Lab Routine Multigravida of advanced maternal age in second trimester 12/03/2023 9:21 AM EDT Scheduled Orders Name Type Priority Associated Diagnoses Orde r Schedule 100-G GESTATIONAL GLUCOSE, 3 HOUR Lab Routine [...] Date/Time Associated Diagnosis Comments 100-G GESTATIONAL GLUCOSE, FASTING Routine 12/03/2023 7:14 AM EDT Multigravida of advanced maternal age in second trimester documented in this encounter Results * 100-G GESTATIONAL GLUCOSE, FASTING (12/03/2023 7:14 AM EDT) 100-g Gestational Glucose, Fasting 83 70 - 94 mg/dL 12/03/2023 8:48 AM EDT LABORATORY HALEY SANTANA 57-10 Blood Venous blood specimen / Unknown [...] than or equal to 140 mg/dL Emilie PEDRAZA LAB BLOOD ORDERABLES LABORATORY HALEY SANTANA 57-10 132 [facility] [place] [address] documented in this encounter Visit Diagnoses Diagnosis Multigravida of advanced maternal age in second trimester documented in this encounter Care Teams Flat Bed Operator Relationship Specialty Start Date End Date Diego Morfin MD [address] [place] [address], [place] [address] PCP - General 06/01/00 documented as of this encounter
--- OUTSIDE RECORDS SUMMARY | 2024-02-28 01:55 | External Medical Summary ---
Author Name Unknown Address Unknown Organization [id number]:[facility]ORY [facility] [place] [address] [facility] [address] [place] [address] Laboratory Report Ordering Provider Test Date Status MARITZABACKER 09/19/2023 10:17:03 Final Observation Date Value Abnormality Reference (Units ) Status WBC, Total 09/19/2023 10:17:03 8.85 4.00-10.8 0 (K/uL) Final RBC 09/19/2023 10:17:03 4.46 3.85-5.15 (M/uL) Final Hemoglobin 09/19/2023 10:17:03 13.3 12.0-15.3 (g/dL) Final Anemia reflex testing trigge rs on a HGB < 12.0 for Females and HGB < 13.0 for Males in accordance with the WHO Anemia Guidelines HCT 09/19/2023 10:17:03 42.3 36.0-45.2 (%) Final MCV 09/19/2023 10:17:03 94.8 81.5-97.5 (fL) Final MCH 09/19/2023 10:17:03 29.8 27.0-34.0 (pg) Final MCHC 09/19/2023 10:17:03 31.4 32.0-36.0 (g/dL) Final RDW 09/19/2023 10:17:03 12.9 11.5-15.5 (%) Final Platelets 09/19/2023 10:17:03 170 140-400 (K /uL) Final MPV 09/19/2023 10:17:03 13.3 6.6-11.1 ( fL) Final Nucleated erythrocytes/100 leukocytes [Ratio] in Blood by Automated count 09/19/2023 10:17:03 0 <=0 (/100 WBCs) Fi nal Performing Location [facility] [address] [facility] [address] [place] [address]
--- OUTSIDE RECORDS SUMMARY | 2024-02-28 01:55 | External Medical Summary | Summary of Care ---
Author Name Unknown Organization [facility] Address [address] [facility] [place] [address] Phone [phone] Care Team Providers Care Director Of Extension Work Name Role Phone Diego Morfin MD Primary Care Provider Reason for Visit * Reason Comments Outpatient Testing Encounter Details Date Type Department Care Team (Late st Contact Info) Description 09/19/2023 11:40 AM EST Laboratory Laboratory, [facility] 132 [facility] [place] [phone] [facility] [address] Normal in second trimester Allergies No known active allergiesdocumented as of this encounter (statuses as of 09/19/2023) Medications Medication Sig Dispensed Refills Start Date End Date Status 27-0.8 MG Oral Tablet Take 1 Tablet by mouth daily at noon. 0 Active documented as of this encounter (statuses as of 09/19/2023) Active Problems Problem Noted Date Diagnosed Date Normal 09/19/2023 Late care 09/19/2023 Overview: Initiated at 18 weeks AMA (advanced maternal age) multigravida 35+ 11/2023 Obesity in , antepartum 09/19/2023 Overview: Class 1 Estimated Date of Delivery Comme nts Yes 02/22/2024 Based on last me nstrual period of 05/18/2023 documented as of this encounter (statuses as of 09/19/2023) Immunizations Name Administration Dates Next Due Seasonal [...] money to get more. Never true 09/06/2023 [place] Depression Scale Answer Date Recorded [place] Depression Scale Total 5 09/19/2023 The thought [...] Care Team (Late st Contact Info) Description 10/04/2023 2:15 PM EST [facility] [address] [place] [address] 10/19/2023 10:20 AM EST Laboratory [facility], [facility] 132 [place] [phone] [place] [address] 10/19/2023 10:45 AM EST Office Visit Gynecology/Obstetrics [place] [address] Emilie Santana CRNP [address] [place] [address] Pending Results Name Type Priority Associated Diagnoses Date /Time TYPE AND SCREEN Lab Routine Normal in second trimester 09/19/2023 10:17 AM EST RUBELLA IGG ANTIBODY Lab Routine Normal in second trimester 09/19/2023 10:17 AM EST HEPATITIS B SURFACE ANTIGEN Lab Routine Normal in second trimester 09/19/2023 10:17 AM EST HIV ANTIGEN & ANTIBODY SCREEN W/ CONFIRMATION Lab Routine Normal in second trimester 09/19/2023 10:17 AM EST CBC WITH WBC DIFFERENTIAL AND ANEMIA REFLEX WORKUP Lab Routine Normal in second trimester 09/19/2023 10:17 AM EST HEPATITIS C ANTIBODY SCREEN WITH PROGRESSION TO HEPATITIS C RNA QUANTITATIVE Lab Routine Normal in second trimester 09/19/2023 10:17 AM EST SYPHILIS ANTIBODY SCREEN WITH REFLEX TO RPR Lab Routine Normal in second trimester 09/19/2023 10:17 AM EST VARICELLA-ZOSTER VIRUS ANTIBODY, IGG Lab Routine Normal in second trimester 09/19/2023 10:17 AM EST ANEMIA CBC Lab Routine Normal in second trimester 09/19/2023 10:17 AM EST DIFFERENTIAL, AUTOMATED Lab Routine Normal in second trimester 09/19/2023 10:17 AM EST ANEMIA REFLEX CHEMISTRY HOLD Lab Routine Normal in second trimester 09/19/2023 10:17 AM EST HEPATITIS C ANTIBODY Lab Routine Normal in second trimester 09/19/2023 10:17 AM EST HEPATITIS C RNA ADD ON Lab Routine Normal in second trimester 09/19/2023 10:17 AM EST SYPHILIS ANTIBODY SCREEN Lab Routine Normal in second trimester 09/19/2023 10:17 AM EST Health Maintenance Due Date Last Done Comments Diabetes Screening 1985 Hepatitis B (1 of 3 - 3-dose series) 1985 COVID-19 Vaccine (#1) 06/19/1986 Depression Screening 1997 HIV Screening 2000 Hepatitis C Screening 12/19/2003 DTaP,Tdap,and Td Vaccines (1 - Tdap) 2004 Pap Smear 2006 Cervical Cancer Screening 12/19/2015 HPV/Co-Test 12/19/2015 Influenza Vaccine (FLU shot) Completed 11/2023, 09/19/2023 [...] this encounter Visit Diagnoses Diagnosis Normal in second trimester documented in this encounter Care Teams Director Of Extension Work Relationship Specialty Start Date End Date Diego Morfin MD [address] [place] [address] [address] PCP - General 06/01/00 documented as of this encounter
--- OUTSIDE RECORDS SUMMARY | 2024-02-28 01:55 | External Medical Summary ---
Author Name Unknown Address Unknown Organization K01:[facility]ORY [facility] - [address] [place] [address] Laboratory Report Ordering Provider Test Date Status ISABELLA SALAS 09/19/2023 10:17:03 Final Observation Date Value Abnormality Reference (Units ) Status ABO 09/19/2023 10:17:03 A Final RH 09/19/2023 10:17:03 Positive Final RED BLOOD CELL ANTIBODY SCREEN 09/19/2023 10:17:03 Negative Final SPECIMEN EXPIRATION DATE 09/19/2023 10:17:03 09/22/2023 23:59 Final Performing Location LAB[facility]ORY [facility] - [address] [place] [address]
--- OUTSIDE RECORDS SUMMARY | 2024-02-28 01:55 | External Medical Summary ---
Author Name Unknown Address Unknown Organization [id number]:LABORATORY [facility] [place] - [address] [facility] [place] [address] Laboratory Report Ordering Provider Test Date Status MARITZABACKER 09/19/2023 10:17:03 Final Observation Date Value Abnormality Reference (Units ) Status SYNC LEUKOCYTES IN BLOOD BY AUTOMATED COUNT 09/19/2023 10:17:03 8.85 4.00-10.80 (K/uL) Final Segs 09/19/2023 10:17:03 76.4 Above high normal 40.0-75.0 (%) Final Lymphs % 09/19/2023 10:17:03 15.6 Below low normal 18.0-42.0 (%) Final Monos 09/19/2023 10:17:03 6.7 1.0-11.0 (%) Final Eosinophils 09/19/2023 10:17:03 0.6 0.0-6.0 (%) Final Basos 09/19/2023 10:17:03 0.2 0.0-2.0 (%) Final Immature Granulocyte, Percent 09/19/2023 10:17:03 0.5 0.0-2.0 (%) Final Absolute Segs 09/19/2023 10:17:03 6.77 1.80-7.70 (K/uL) Final Lymphs, absolute 09/19/2023 10:17:03 1.38 1.00-4.80 (K/ul) Final Monos, Abs 09/19/2023 10:17:03 0.59 0.00-1.10 (K/uL) Final Eos, Abs 09/19/2023 10:17:03 0.05 0.00-0.70 (K/uL) Final Basos, Abs 09/19/2023 10:17:03 0.02 0.00-0.20 (K/uL) Final Immature Granulocytes, Number 09/19/2023 10:17:03 0.04 0.00-0.20 (K/uL) Final Performing Location LABORATORY [facility] [place] - [address] [facility] [address]
--- OUTSIDE RECORDS SUMMARY | 2024-02-28 01:55 | External Medical Summary | Summary of Care ---
Author Name Unknown Organization [facility] Address [address] [facility] [facility] [address] Phone [phone] Care Team Providers Care Geophysical Laboratory Director Name Role Phone Diego Morfin MD Primary Care Provider Reason for Visit * Reason Onset Date Comments Test Results 10/05/2023 Encounter Details Date Type Department Care Team (Late st Contact Info) Description 10/05/2023 Telephone Gynecology/Obstetrics [facility] [address] [place] [address] Dacia Ndiaye CRNP [address] [place] [phone] Test Results Allergies No known active allergiesdocumented as of this encounter (statuses as of 10/05/2023) Medications Medication Sig Dispensed Refills Start Date End Date Status 27-0.8 MG Oral Tablet Take 1 Tablet by mouth daily at noon. 0 Active documented as of this encounter (statuses as of 10/05/2023) Active Problems Problem Noted Date Diagnosed Date Normal 09/19/2023 Late care 09/19/2023 Overview: Initiated at 18 weeks AMA (advanced maternal age) multigravida 35+ 11/2023 Obesity in , antepartum 09/19/2023 Overview: Class 1 Estimated Date of Delivery Comme nts Yes 02/22/2024 Based on last me nstrual period of 05/18/2023 documented as of this encounter (statuses as of 10/05/2023) Immunizations Name Administration Dates Next Due Seasonal [...] money to get more. Never true 09/06/2023 [place] Depression Scale Answer Date Recorded [place] Depression Scale Total 5 09/19/2023 The thought [...] encounter Miscellaneous Notes * Telephone Encounter - Eliza Johnson LPN - 10/05/2023 8:38 AM EST Pt notified. scheduled * Telephone Encounter - Dacia Ndiaye CRNP - 10/05/2023 7:59 AM EST U/S reviewed, needs some additional views due to baby's position. Return in 2 weeks. Radiologist reports "cine hernandes a" (synechiae?), have sent a message to radiologist to clarify and will f/u with pt. KEILA Goel documented in this encounter Plan of Treatment Upcoming Encounters Date Type Department Care Team (Late st Contact Info) Description 10/19/2023 10:20 AM EST Laboratory Laboratory, [facility] [address] [place] [address] [facility] [address] [place] [address] 10/19/2023 10:45 AM EST Office Visit Gynecology/Obstetrics [facility] [address] [place] [address] Emilie Santana CRNP [address] [place] [address] 10/19/2023 11:30 AM EST Imaging Radiology [facility] 2nd Floor, [facility] [address] [facility] [place] [address] Scheduled Orders Name Type Priority Associated Diagnoses Orde r Schedule US PREG FOLLOW-UP EACH FETUS Medical Imaging Routine Normal in second trimester Encounter for follow-up ultrasound of anatomy Expected: 10/19/2023 (Approximate), Expires: 11/05/2024 Health Maintenance Due Date Last Done Comments [...] encounter Visit Diagnoses Diagnosis Normal in second trimester- Primary Encounter for follow-up ultrasound of anatomy documented in this encounter Care Teams Geophysical Laboratory Director Relationship Specialty Start Date End Date Diego Morfin MD [address] [facility] [address] PCP - General 06/01/00 documented as of this encounter
--- OUTSIDE RECORDS SUMMARY | 2024-02-28 01:55 | External Medical Summary ---
Author Name Unknown Address Unknown Organization K01:LABORATORY [facility] [place] - [address] [facility] [address] Laboratory Report Ordering Provider Test Date Status ISABELLA SALAS 09/19/2023 10:17:03 Final Observation Date Value Abnormality Reference (Units ) Status Treponema pallidum Ab [Presence] in Serum by Immunoassay 09/19/2023 10:17:03 Nonreactive Nonreactive Final No serologic evidence of syp hilis. No additional testing clinicially indicated at this time. Consider repeat testing in 2-4 weeks if acute or primary syphilis is suspected. Performing Location LABORATORY [facility] - [address] [facility] [address]
--- OUTSIDE RECORDS SUMMARY | 2024-02-28 01:55 | External Medical Summary ---
Author Name Unknown Address Unknown Organization K01:[place] [facility] [place] [facility] [address] [facility] [address] Laboratory Report Ordering Provider Test Date Status ISABELLA SALAS 09/19/2023 09:57:24 Final Observation Date Value Abnormality Reference (Units ) Status Chlamydia trachomatis rRNA [Presence] in Specimen by GERMAIN with probe detection 09/19/2023 09:57:24 Negative Negative Final No Chlamydia trachomatis det ected by afloat cryptologic manager-mediated nucleic acid amplification. Neisseria gonorrhoeae rRNA [ Presence] in Specimen by GERMAIN with probe detection 09/19/2023 09:57:24 Negative Negative Final No Neisseria gonorrhoeae det ected by afloat cryptologic manager-mediated nucleic acid amplification. Performing Location [facility] [place] [facility] [address] [facility] [address]
--- OUTSIDE RECORDS SUMMARY | 2024-02-28 01:55 | External Medical Summary | Summary of Care ---
Author Name Unknown Organization [facility] Address [address] [facility] [place] [address] Phone [phone] Care Team Providers Care Fundraising Sale Representative Name Role Phone Diego Morfin MD Primary Care Provider Reason for Visit * Reason Comments New Visit Encounter Details Date Type Department Care Team (Late st Contact Info) Description 09/19/2023 9:30 AM EST Office Visit Gynecology/Obstetric s [facility] [address] [place] [address] Dacia Ndiaye CRNP [address] [place] [address] Normal in second trimester*; Late care; Multigravida of advanced maternal age in second trimester; Obesity in , antepartum; Pap smear for cervical cancer screening; Need for prophylactic vaccination and inoculation against influenza Allergies No known active allergiesdocumented as of [...] money to get more. Never true 09/06/2023 Spalding Depression Scale Answer Date Recorded Spalding Depression Scale Total 5 09/19/2023 The thought [...] Sign Reading Time Taken Comments Blood Pressure 112/70 09/19/2023 9:11 AM EST Pulse - - Temperature - - Respiratory Rate - - Oxygen Saturation - - Inhaled Oxygen Concentration - - Weight 90.7 kg (200 lb) 09/19/2023 9:11 AM EST Weight at first OB visit Height 172.7 cm (5' 8") 09/19/2023 9:11 AM EST Body Mass Index 30.41 09/19/2023 9:11 AM EST documented in this encounter Progress Notes * Dacia Ndiaye CRNP - 09/19/2023 9:50 AM EST CC: NOB HPI: Gini Katz is a 37 year old female here for initial OB exam. JESSICA 02/22/24 by LMP, confirmed with dating u/s. 17w5d, +cardiac activity on ultrasound this morning. She is taking vitamins. She plans to breastfeed infant. Reviewed PMH, social hx, family hx, surgical hx, ob hx with patient. Current symptoms: no cramping or bleeding. Has not felt movement yet. Discussed Qnatal and Quad screen. Reviewed current medications with patient. Last pap smear unknown, reports normal hx Spalding Depression Scale: Spalding Depression Scale Total: 5 Spalding suicide question and score: Score of 3 = Yes, quite often. Score of 2 = Sometimes. Score of 1 = Hardly ever The thought of harming myself has occurred to me.: 0 OB History Para Term AB Living 2 1 1 1 SAB IAB Ectopic Multiple Live Births 1 # Outcome Date GA Lbr Harvey/2nd Weight Sex Delivery Anes PTL Lv 2 Current 1 Term 04/09/10 3.572 kg (7 lb 14 oz) M SPONTANEOUS N CECE No past medical history on file. Social History Socioeconomic History Marital status: Single Tobacco Use Smoking status: Never Smokeless tobacco: Never Substance and Sexual Activity Alcohol use: Not Currently Drug use: Not Currently Sexual activity: Yes Partners: Male Social Determinants of Health Food Insecurity: No Food Insecurity (09/06/2023) Hunger Vital Sign Worried About Running Out of Food in the Last Year: Never true Ran Out of Food in the Last Year: Never true Past Surgical History: Procedure Laterality Date VT APPENDECTOMY Current Outpatient Medications Medication Sig Dispense Refill 27-0.8 MG Oral Tablet Take 1 Tablet by mouth daily at noon. No current facility-administered medications for this visit. Review of patient's allergies indicates: No Known Allergies Family History Problem Relation Age of Onset Heart failure Mother Heart failure Father Diabetes Grandmother (Paternal) Breast Cancer Aunt (Paternal) Denies family history of genetic conditions in patient's and FOB's families. ROS: General: no fevers, chills CV: no chest pain, SOB GI: no constipation, diarrhea, nausea Breast: no masses, nipple discharge, + tenderness : no vaginal bleeding, unusual vaginal discharge, dysuria Psychological: no anxiety, depression, SI/HI PHYSICAL EXAM: please see physical Administration Vice President Documentation Provider requested supervisor assembly and packing. Name of supervisor assembly and packing: Ann Monk LPN ASSESSMENT/PLAN: Normal in second trimester (Primary) - CULTURE, URINE, QUANTITATIVE - TYPE AND SCREEN; Future; Expected date: 09/19/2023 - RUBELLA IGG ANTIBODY; Future; Expected date: 09/19/2023 - HEPATITIS B SURFACE ANTIGEN; Future; Expected date: 09/19/2023 - HIV ANTIGEN & ANTIBODY SCREEN W/ CONFIRMATION; Future; Expected date: 09/19/2023 - CHLAMYDIA TRACHOMATIS AND NEISSERIA GONORRHOEAE, AMPLIFIED PROBE; Future; Expected date: 09/19/2023 - CBC WITH WBC DIFFERENTIAL AND ANEMIA REFLEX WORKUP; Future; Expected date: 09/19/2023 - HEPATITIS C ANTIBODY SCREEN WITH PROGRESSION TO HEPATITIS C RNA QUANTITATIVE; Future; Expected date: 09/19/2023 - SYPHILIS ANTIBODY SCREEN WITH REFLEX TO RPR; Future; Expected date: 09/19/2023 - US PREG SINGLE/1ST GEST, 14 WEEKS OR LATER; Future; Expected date: 10/03/2023 - VARICELLA-ZOSTER VIRUS ANTIBODY, IGG; Future; Expected date: 09/19/2023 Late care Multigravida of advanced maternal age in second trimester Obesity in , antepartum - 50-G GESTATIONAL GLUCOSE, 1 HOUR; Future; Expected date: 09/19/2023 Pap smear for cervical cancer screening - MILLED RICE BROKER PAP SCREEN Need for prophylactic vaccination and inoculation against influenza - INFLUENZA VACC, QUAD, PF, 6 MONTHS & UP, 0.5 ML, IM Follow Up: Return in about 4 weeks (around 10/17/2023) for rpn. | For: rpn | Check-out note: Anatomyscan in 2 weeks, schedule 1 hr glucose test - Discussed timing of routine OB care - accepts flu vaccine - Offered genetic screening and explained that screening does not provide a definitive diagnosis. Patient given Qnatal brochure, advised to call office if testing is desired. - Recommended daily vitamin. - Discussed labs as ordered and instructed patient to present to lab following appointment. Discussed early GTT. - RTO in 4 weeks for CECILY, PRKahlil with concern KEILA Goel documented in this encounter Nursing Notes * Annie Flanagan LPN - 09/19/2023 9:56 AM EST Patient here for flu injection. Patient doing well no complaints. Injection given IM as ordered. Patient tolerated well. Patient to follow up as directed. Patient instructed to call if any complications. Patient verbalized understanding of instructions given. Injection site: Right Deltoid Medication Source: Dispensed stock medication documented in this encounter Plan of Treatment Upcoming Encounters Date Type Department Care Team (Late st Contact Info) Description 09/19/2023 11:40 AM EST Laboratory Laboratory, [facility] [address] [facility] [place] [address] Nadine News [address] [facility] [place] [address] Normal in second trimester 10/04/2023 2:15 PM EST Imaging Radiology [facility] 132 [facility] [place] [address] 10/19/2023 10:20 AM EST Laboratory Laboratory, [facility] [address] [facility] [place] [address] Nadine [facility] 132 [facility] [place] [address] 10/19/2023 10:45 AM EST Office Visit Gynecology/Obstetric s [facility] [address] [facility] [place] [address] Emilie Santana CRNP [address] [place] [address] Pending Results Name Type Priority Associated Diagnoses Date /Time CULTURE, URINE, QUANTITATIVE Lab Routine Normal in second trimester 09/19/2023 9:57 AM EST CHLAMYDIA TRACHOMATIS AND NEISSERIA GONORRHOEAE, AMPLIFIED PROBE Lab Routine Normal in second trimester 09/19/2023 9:57 AM EST MILLED RICE BROKER PAP SCREEN Pathology Routine Pap smear for cervical cancer screening 09/19/2023 9:57 AM EST Scheduled Orders Name Type Priority Associated Diagnoses Orde r Schedule TYPE AND SCREEN Lab Routine Normal in second trimester Expected: 09/19/2023 (Approximate), Expires: 10/20/2024 RUBELLA IGG ANTIBODY Lab Routine Normal in second trimester Expected: 09/19/2023 (Approximate), Expires: 09/19/2024 HEPATITIS B SURFACE ANTIGEN Lab Routine Normal in second trimester Expected: 09/19/2023 (Approximate), Expires: 09/19/2024 HIV ANTIGEN & ANTIBODY SCREEN W/ CONFIRMATION Lab Routine Normal in second trimester Expected: 09/19/2023 (Approximate), Expires: 09/19/2024 CHLAMYDIA TRACHOMATIS AND NEISSERIA GONORRHOEAE, AMPLIFIED PROBE Lab Routine Normal in second trimester Expected: 09/19/2023 (Approximate), Expires: 09/19/2024 CBC WITH WBC DIFFERENTIAL AND ANEMIA REFLEX WORKUP Lab Routine Normal in second trimester Expected: 09/19/2023 (Approximate), Expires: 09/19/2024 HEPATITIS C ANTIBODY SCREEN WITH PROGRESSION TO HEPATITIS C RNA QUANTITATIVE Lab Routine Normal in second trimester Expected: 09/19/2023 (Approximate), Expires: 09/19/2024 SYPHILIS ANTIBODY SCREEN WITH REFLEX TO RPR Lab Routine Normal in second trimester Expected: 09/19/2023 (Approximate), Expires: 09/19/2024 US PREG SINGLE/1ST GEST, 14 WEEKS OR LATER Medical Imaging Routine Normal in second trimester Expected: 10/03/2023 (Approximate), Expires: 10/20/2024 VARICELLA-ZOSTER VIRUS ANTIBODY, IGG Lab Routine Normal in second trimester Expected: 09/19/2023 (Approximate), Expires: 09/19/2024 50-G GESTATIONAL GLUCOSE, 1 HOUR Lab Routine Obesity in , antepartum Expected: 09/19/2023 (Approximate), Expires: 09/19/2024 Health Maintenance Due Date Last Done Comments Diabetes Screening 1985 Hepatitis B (1 of 3 - 3-dose series) 1985 COVID-19 Vaccine (#1) 06/19/1986 Depression Screening 1997 HIV Screening 2000 Hepatitis C Screening 12/19/2003 DTaP,Tdap,and Td Vaccines (1 - Tdap) 2004 Pap Smear 2006 Cervical Cancer Screening 12/19/2015 HPV/Co-Test 12/19/2015 Influenza Vaccine (FLU shot) Completed 09/19/2023 GARDASIL-HPV IMMUNIZATION SERIES Aged Out No longer eligible based on patient's age to complete this topic MENINGOCOCCAL (MENACTRA/MENVEO) Aged Out No longer eligible based on patient's age to complete this topic Pneumococcal Vaccine: Pediat rics (0 to 5 Years) and At-Risk Patients (6 to 64 Years) Aged Out No longer eligi ble based on patient's age to complete this topic documented as of this encounter Medical Devices Not on filedocumented as of this encounter Visit Diagnoses Diagnosis Normal in second trimester- Primary Late care Insufficient care Multigravida of advanced maternal age in second trimester Obesity in , antepartum Obesity complicating , childbirth, or the puerperium, antepartum condition or complication Pap smear for cervical cancer screening Screening for malignant neoplasm of the cervix Need for prophylactic vaccination and inoculation against influenza Normal in second trimester documented in this encounter Care Teams Fundraising Sale Representative Relationship Specialty Start Date End Date Diego Morfin MD 6 [facility] [address] [place] [address] PCP - General 06/01/00 documented as of this encounter
--- OUTSIDE RECORDS SUMMARY | 2024-02-28 01:55 | External Medical Summary | Summary of Care ---
Author Name Unknown Organization [facility] Address [address] [facility] [place] [address] Phone [phone] Care Team Providers Care Street Car Inspector Name Role Phone Diego Morfin MD Primary Care Provider Reason for Visit * Reason Comments New Visit Encounter Details Date Type Department Care Team (Late st Contact Info) Description 09/07/2023 9:00 AM EST Nurse Only Gynecology/Obstetrics [facility] 132 [facility] [place] [address] Gw, Nurse Psychiatric Social Worker Supervisor [facility] 132 [facility] [place] [address] New Visit Allergies No known active allergiesdocumented as of this encounter (statuses as of 09/07/2023) Medications Medication Sig Dispensed Refills Start Date End Date Status 27-0.8 MG Oral Tablet Take 1 Tablet by mouth daily at noon. 0 Active documented as of this encounter (statuses as of 09/07/2023) Social History Tobacco Use Types Packs/Day Years Used Date Smoking Tobacco: Never Smokeless Tobacco: Never Tobacco Cessation:Counseling Given: Not Answered Alcohol Use Standard Drinks/Week Comments Not Currently [...] money to get more. Never true 09/06/2023 Comments Yes Sex and Gender Information Value Date Recorded Sex Assigned at Female 09/06/2023 4:51 PM EST Gender Identity Female 09/06/2023 4:51 PM EST Sexual Orientation Straight 09/06/2023 4: 51 PM EST Job Start Date Occupation Industry Not on file Not on file Not on file documented as of this encounter Last Filed Vital Signs Vital Sign Reading Time Taken Comments Blood Pressure - - Pulse - - Temperature - - Respiratory Rate - - Oxygen Saturation - - Inhaled Oxygen Concentration - - Weight 72.6 kg (160 lb) 09/07/2023 8:58 AM EST Height 172.7 cm (5' 8") 09/07/2023 8:58 AM EST Body Mass Index 24.33 09/07/2023 8:58 AM EST documented in this encounter Nursing Notes * Aurora Lopez RN - 09/07/2023 8:59 AM EST Patient calld for NOB visit LMP 05/18/2023 No care/US yet Denies bleeding/leaking Education given Triage number given Questions answered Aurora Lopez RN documented in this encounter Plan of Treatment Upcoming Encounters Date Type Department Care Team (Late st Contact Info) Description 09/19/2023 8:30 AM EST Imaging Radiology [facility] 2nd [facility] [address] [place] [address] 09/19/2023 9:30 AM EST Office Visit Gynecology/Obstetrics [facility] 132 [place] [address] BackerDacia CRNP [address] [place] [address] Health Maintenance Due Date Last Done Comments Hepatitis B (1 of 3 - 3-dose series) 1985 COVID-19 Vaccine (#1) 06/19/1986 Depression Screening 1997 HIV Screening 2000 Hepatitis C Screening 12/19/2003 DTaP,Tdap,and Td Vaccines (1 - Tdap) 2004 Pap Smear 2006 Cervical Cancer Screening 12/19/2015 HPV/Co-Test 12/19/2015 Influenza Vaccine (FLU shot) (#1) 2023 GARDASIL-HPV IMMUNIZATION SERIES Aged Out No longer [...] filedocumented as of this encounter Care Teams Street Car Inspector Relationship Specialty Start Date End Date Diego Morfin MD [address] [place] [address] [address] PCP - General 06/01/00 documented as of this encounter
--- OUTSIDE RECORDS SUMMARY | 2024-02-28 01:55 | External Medical Summary ---
Author Name Unknown Address Unknown Organization K01:[facility] - [address] [place] [address] Laboratory Report Ordering Provider Test Date Status ISABELLA SALAS 09/19/2023 10:17:03 Final Observation Date Value Abnormality Reference (Units ) Status Hep C Ab 09/19/2023 10:17:03 Negative Negative Final Further HCV quantitative smita ting not performed per protocol. Performing Location [facility] - [address] [place] [address]
--- OUTSIDE RECORDS SUMMARY | 2024-02-28 01:55 | External Medical Summary | Summary of Care ---
Author Name Unknown Organization [facility] Address [address] [facility] [place] [place] [address] Phone [phone] Care Team Providers Care Senior Electrical Engineer Name Role Phone Diego Morfin MD Primary Care Provider Encounter Details Date Type Department Care Team (Late st Contact Info) Description 09/06/2023 Telephone Gynecology/Obstetrics [facility] 400 [facility] [place] [address] Sarwat Stevenson MD [address] [place] [address] Social History Tobacco Use Types Packs/Day Years Used Date Smoking Tobacco: Never Assessed Sex and Gender Information Value Date Recorded Sex Assigned at Not on file Gender Identity Not on file Sexual Orientation Not on file Job Start Date Occupation Industry Not on file Not on file Not on file documented as of this encounter Miscellaneous Notes * Telephone Encounter - Stephy Peterson MED ASSIST - 09/06/2023 4:01 PM EST Appt scheduled, pt aware * Telephone Encounter - Eliza Johnson LPN - 09/06/2023 2:53 PM EST We only have one nurse for phones the rest of today. Please help her reschedule for another day prior to her Nob appt. * Telephone Encounter - Venice Abreu RN - 09/06/2023 2:25 PM EST T/C from pt. Was scheduled for nurse intake this am. Hav been trying to call the office but was calling the wrong number. Pt is able to complete intake at this time. Please call pt. documented in this encounter Plan of Treatment Upcoming Encounters Date Type Department Care Team (Late st Contact Info) Description 09/07/2023 9:00 AM EST Nurse Only Gynecology/Obstetrics [facility] [address] [place] [address] Gw, Nurse Quality Cloth Tester [facility] 132 [facility] [place] [address] 09/19/2023 8:30 AM EST Imaging Radiology [facility] 2nd Floor, [place] [address] [place] [address] 09/19/2023 9:30 AM EST Office Visit Gynecology/Obstetrics [facility] [address] [place] [address] Backer, KEILA Joseph [address] [place] [address] Health Maintenance Due Date Last Done Comments [...] filedocumented as of this encounter Care Teams Senior Electrical Engineer Relationship Specialty Start Date End Date Diego Morfin MD 6 [facility] [place] [address] PCP - General 06/01/00 documented as of this encounter
--- OUTSIDE RECORDS SUMMARY | 2024-02-28 01:55 | External Medical Summary | Summary of Care ---
Author Name Unknown Organization [facility] Address [address] [place] [address] Phone [phone] Care Team Providers Care Hogshead Hooper Name Role Phone Diego Morfin MD Primary Care Provider Encounter Details Date Type Department Care Team (Late st Contact Info) Description 09/06/2023 Telephone Gynecology/Obstetrics [facility] 400 [facility] [place] [phone] Sarwat Stevenson MD 132 [facility] [place] [address] Social History Tobacco Use Types Packs/Day Years Used Date Smoking Tobacco: Never Assessed Sex and Gender Information Value Date Recorded Sex Assigned at Not on file Gender Identity Not on file Sexual Orientation Not on file Job Start Date Occupation Industry Not on file Not on file Not on file documented as of this encounter Miscellaneous Notes * Telephone Encounter - Venice Abreu RN [...] Description 09/19/2023 8:30 AM EST Imaging Radiology [address] [place] [address] 09/19/2023 9:30 AM EST Office Visit Gynecology/Obstetrics [facility] [address] [place] [address] Dacia Ndiaye CRNP [address] [place] [address] Health Maintenance Due Date Last Done Comments [...] filedocumented as of this encounter Care Teams Hogshead Hooper Relationship Specialty Start Date End Date Diego Mofrin MD 6 [facility] Jasvir Hayes [address] [place] [address], [place] [address] PCP - General 06/01/00 documented as of this encounter
--- OUTSIDE RECORDS SUMMARY | 2024-02-28 01:55 | External Medical Summary ---
Author Name Unknown Address Unknown Organization K01[facility] [place] [address] [place] [address] [address] [facility] [address] Laboratory Report Ordering Provider Test Date Status ISABELLA SALAS 09/19/2023 10:17:03 Final Observation Date Value Abnormality Reference (Units ) Status HIV 1+2 Ab+HIV1 p24 Ag [Presence] in Serum or Plasma by Immunoassay 09/19/2023 10:17:03 Negative Negative Final Negative HIV-1/2 antigen and antibody screening tset results usually indicate the absence of HIV-1 and HIV-2 infection. However, such negative results do not rule-out acute HIV infection. If acute HIV-1 infection is highly suspected, it is recommended that a specimen be submitted for detection of HIV-1 RNA. Performing Location [facility] [place] [address] [facility] [address] [facility] [address]
--- OUTSIDE RECORDS SUMMARY | 2024-02-28 01:55 | External Medical Summary | Summary of Care ---
Author Name Unknown Organization [facility] Address [address] [facility] [place] [address] Phone [phone] Care Team Providers Care Custodial Worker Name Role Phone Diego Morfin MD Primary Care Provider Reason for Visit * Reason Comments Return Visit Encounter Details Date Type Department Care Team (Late st Contact Info) Description 10/19/2023 10:45 AM EST Office Visit Gynecology/Obstetric s [facility] [address] [place] [address] Emilie Santana CRNP [address] [place] [address] Normal in second trimester*; Late care; Multigravida of advanced maternal age in second trimester; Obesity in , antepartum Allergies No known active allergiesdocumented as of this encounter (statuses as of 10/19/2023) Medications Medication Sig Dispensed Refills Start Date End Date Status 27-0.8 MG Oral Tablet Take 1 Tablet by mouth daily at noon. 0 Active documented as of this encounter (statuses as of 10/19/2023) Active Problems Problem Noted Date Diagnosed Date Normal 09/19/2023 Late care 09/19/2023 Overview: Initiated at 18 weeks AMA (advanced maternal age) multigravida 35+ 11/2023 Obesity in , antepartum 09/19/2023 Overview: Class 1 Estimated Date of Delivery Comme nts Yes 02/22/2024 Based on last me nstrual period of 05/18/2023 documented as of this encounter (statuses as of 10/19/2023) Immunizations Name Administration Dates Next Due Seasonal [...] money to get more. Never true 09/06/2023 Isabela Depression Scale Answer Date Recorded Isabela Depression Scale Total 5 09/19/2023 The thought [...] Sign Reading Time Taken Comments Blood Pressure 114/70 10/19/2023 10:23 AM EST Pulse - - Temperature - - Respiratory Rate - - Oxygen Saturation - - Inhaled Oxygen Concentration - - Weight 93.4 kg (206 lb) 10/19/2023 10:23 AM EST Height 172.7 cm (5' 8") 10/19/2023 10:23 AM EST Body Mass Index 31.32 10/19/2023 10:23 AM EST documented in this encounter Progress Notes * Emilie Santana CRNP - 10/19/2023 10:33 AM EST 22w No concerns. +FM. No n/v, no bleeding. Completing early glucola today. U/s after this appt for missed anatomy. KEILA Ramos * Ann Monk LPN - 10/19/2023 10:20 AM EST 22w0d Doing early glucola documented in this encounter Plan of Treatment Upcoming Encounters Date Type Department Care Team (Late st Contact Info) Description 10/19/2023 11:30 AM EST Imaging Radiology [facility]nd [facility] [address] [place] [address] Normal in second trimester; Encounter for follow-up ultrasound of anatomy 11/16/2023 2:00 PM EST Office Visit Gynecology/Obstetri cs [facility] [place] [address] Emilie Santana CRNP [address] [place] [address] Nurse Shaq Healthy [employer]nings Return [facility] 132 [facility] [place] [address] Health Maintenance Due Date Last Done Comments [...] or the puerperium, antepartum condition or complication Normal in second trimester Encounter for follow-up ultrasound of anatomy documented in this encounter Care Teams Custodial Worker Relationship Specialty Start Date End Date Diego Morfin MD [address] [address] PCP - General 06/01/00 documented as of this encounter
--- OUTSIDE RECORDS SUMMARY | 2024-02-28 01:55 | External Medical Summary ---
Author Name Unknown Address Unknown Organization K01[facility] - [address] [place] [address] Laboratory Report Ordering Provider Test Date Status ISABELLA SALAS 09/19/2023 10:17:03 Final Observation Date Value Abnormality Reference (Units ) Status Hep B surface Ag 09/19/2023 10:17:03 Negative Neg ative Final Performing Location [facility] - [address] [place] [address]
--- OUTSIDE RECORDS SUMMARY | 2024-02-28 01:55 | External Medical Summary | Summary of Care ---
Author Name Unknown Organization [facility] Address [address] [place] [address] Phone [phone] Care Team Providers Care Child Protective Services Social Worker Name Role Phone Diego Morfin MD Primary Care Provider Encounter Details Date Type Department Care Team (Late st Contact Info) Description 09/06/2023 Telephone Gynecology/Obstetrics [facility] [address] [facility] [place] [phone] Sarwat Stevenson MD [address] [place] [address] Social History Tobacco Use Types Packs/Day Years [...] Description 09/19/2023 8:30 AM EST Imaging Radiology [facility] 2nd [facility] [place] [address] [place] [address] 09/19/2023 9:30 AM EST Office Visit Gynecology/Obstetrics [facility] [address] [place] [address] Backer, KEILA Joseph [address] [place] [address] Health Maintenance Due Date Last Done Comments [...] filedocumented as of this encounter Care Teams Child Protective Services Social Worker Relationship Specialty Start Date End Date Diego Morfin MD [address] [facility] [address] [place] [address] PCP - General 06/01/00 documented as of this encounter
--- OUTSIDE RECORDS SUMMARY | 2024-02-28 01:55 | External Medical Summary ---
Author Name Unknown Address Unknown Organization K01:[facility] - [address] [place] [address] Laboratory Report Ordering Provider Test Date Status ISABELLA SALAS 09/19/2023 10:17:03 Final Observation Date Value Abnormality Reference (Units ) Status Rubella virus IgG Ab [Presence] in Serum 09/19/2023 10:17:03 Positive Abnormal Negative Final A positive result is consist ent with having had rubella virus or vaccination. Performing Location [facility] - [address] [place] [address]
--- OUTSIDE RECORDS SUMMARY | 2024-02-28 01:55 | External Medical Summary | Summary of Care ---
Author Name Unknown Organization [facility] Address [address] [place] [address] Phone [phone] Care Team Providers Care Change Release Manager Name Role Phone Diego Morfin MD Primary Care Provider Encounter Details Date Type Department Care Team (Late st Contact Info) Description 09/06/2023 Telephone Gynecology/Obstetrics [facility] 400 [facility] [place] [phone] Sarwat Stevenson MD 132 [facility] [place] [address] Social History Tobacco Use Types Packs/Day Years [...] Description 09/19/2023 8:30 AM EST Imaging Radiology [address] [place] [address] 09/19/2023 9:30 AM EST Office Visit Gynecology/Obstetrics [facility] [address] [place] [address] Dacia Ndiaye CRNP [address] [place] [address] Health Maintenance Due Date Last Done Comments [...] filedocumented as of this encounter Care Teams Change Release Manager Relationship Specialty Start Date End Date Diego Morfin MD 6 [facility] [place] [place] Jasvir Hayes [address] [place] [address], [place] [address] PCP - General 06/01/00 documented as of this encounter
--- OUTSIDE RECORDS SUMMARY | 2024-02-28 01:55 | External Medical Summary ---
Author Name Unknown Address Unknown Organization K01:[facility] [place] [address] [place] [id number] Laboratory Report Ordering Provider Test Date Status ISABELLA SALAS 09/19/2023 09:57:24 Final Observation Date Value Abnormality Reference (Units) Status Bacteria identified in Specimen by Culture 09/19/2023 09:57:24 No significant growth Final Test: Culture, Urine, Quant itative
Specimen Source: Urine, Clean Catch
Specimen Type: Urine
Specimen Date: 09/19/2023 9:57 AM
Result Date: 09/20/2023 9:44 AM
Result Status: Final result
Resulting Lab: [facility]
[address]
[facility] [address]

CULTURE

No significant growth

null Performing Location [facility] [place] [address] [facility] [address]
--- OUTSIDE RECORDS SUMMARY | 2024-02-28 01:55 | External Medical Summary ---
Author Name Unknown Address Unknown Organization K01:LABORATORY [place] [address] Laboratory Report Ordering Provider Test Date Status ISABELLA SALAS 09/19/2023 09:57:00 Final Observation Date Value Abnormality Reference (Units ) Status Human papilloma virus E6+E7 mRNA [Presence] in Cervix by GERMAIN with probe detection 09/19/2023 09:57:00 Negative Not Applicable Final No high/intermediate-risk Hu man Papillomavirus (HPV E6/E7 messenger RNA) detected by nucleic acid amplification.

This assay looks for high/intermediate risk Human Papillomavirus (HPV E6/E7 messenger RNA) by nucleic acid amplification. This assay includes the qualitative detection of HPV types 16,18,31,33,35,39,45,51,52,56,58,59,66 and 68 from cervical specimens.
This assay has been FDA cleared for Thin prep collection vials.
This assay has not been approved for use as a primary screening test for HPV and should be tested in conjunction with a PAP screen.
If collected utilizing a Surepath vial, the collection and specimen preparation of this test was developed, and its performance characteristics determined by [employer]. It has not been cleared or approved by the U.S. Food and Drug Administration (FDA). The FDA has determined that such clearance or approval is not necessary.
This assay has been performed at [facility], [address] [place] [address], [place]. [address]. Performing Location LABORATORY [address] [address]
--- OUTSIDE RECORDS SUMMARY | 2024-02-28 01:55 | External Medical Summary | Summary of Care ---
Author Name Unknown Organization [facility] Address [address] [facility] [address] Phone [phone] Care Team Providers Care Chemistry Intern Name Role Phone Diego Morfin MD Primary Care Provider Reason for Visit * Reason Onset Date Comments Test Results 10/22/2023 Encounter Details Date Type Department Care Team (Late st Contact Info) Description 10/22/2023 Telephone Gynecology/Obstetrics [facility] [address] [place] [address] Dacia Ndiaye CRNP [address] [place] [address] Test Results Allergies No known active allergiesdocumented as of this encounter (statuses as of 10/22/2023) Medications Medication Sig Dispensed Refills Start Date End Date Status 27-0.8 MG Oral Tablet Take 1 Tablet by mouth daily at noon. 0 Active documented as of this encounter (statuses as of 10/22/2023) Active Problems Problem Noted Date Diagnosed Date Normal 09/19/2023 Late care 09/19/2023 Overview: Initiated at 18 weeks AMA (advanced maternal age) multigravida 35+ 11/2023 Obesity in , antepartum 09/19/2023 Overview: Class 1 Estimated Date of Delivery Comme nts Yes 02/22/2024 Based on last me nstrual period of 05/18/2023 documented as of this encounter (statuses as of 10/22/2023) Immunizations Name Administration Dates Next Due Seasonal [...] money to get more. Never true 09/06/2023 Arnold Depression Scale Answer Date Recorded Arnold Depression Scale Total 5 09/19/2023 The thought [...] encounter Miscellaneous Notes * Telephone Encounter - Nicole Meredith RN - 10/22/2023 9:47 AM EST Patient notified of abnormal glucola. The order has been placed in [employer]. Patient. advised to be NPO after 10pm the night before the test.The patient must stay on the premises for the entire time of the test. Patient counseled to take something to eat for after testing. Patient scheduled. * Telephone Encounter - Nicole Meredith RN - 10/22/2023 8:41 AM EST left message for patient to call office * Telephone Encounter - Dacia Ndiaye CRNP - 10/22/2023 8:22 AM EST Elevated 1 hr glucose, needs 3 hr GTT. Please notify pt and help schedule. KEILA Goel documented in this encounter Plan of Treatment Upcoming Encounters Date Type Department Care Team (Late st Contact Info) Description 10/26/2023 8:10 AM EST Laboratory Laboratory, [facility] 132 [facility] [place] [phone] [facility] [address] [facility] [place] [address] 11/16/2023 2:00 PM EST Office Visit Gynecology/Obstetrics [facility] 132 [facility] [place] [address] Emilie Santana CRNP 132 [facility] [place] [address] Nurse Shaq [facility] [employer] [facility] 132 [facility] [place] [address] Scheduled Orders Name Type Priority Associated Diagnoses Orde r Schedule GESTATIONAL GLUCOSE TOLERANCE, 3 HOUR Lab Routine Elevated glucose tolerance test Expected: 10/22/2023 (Approximate), Expires: 10/22/2024 Health Maintenance Due Date Last Done Comments [...] as of this encounter Visit Diagnoses Diagnosis Elevated glucose tolerance test- Primary Impaired glucose tolerance test documented in this encounter Care Teams Chemistry Intern Relationship Specialty Start Date End Date Diego Morfin MD 6 [facility] [address] [address] PCP - General 06/01/00 documented as of this encounter
--- OUTSIDE RECORDS SUMMARY | 2024-02-28 01:55 | External Medical Summary ---
Author Name Unknown Address Unknown Organization K01:LABORATORY [facility] - [address] [place] [address] Laboratory Report Ordering Provider Test Date Status KIRA SALASER 09/19/2023 10:17:03 Final Observation Date Value Abnormality Reference (Units ) Status Varicella Zoster IgG interpretation 09/19/2023 10:17:03 Positive Abnormal Negative Final A positive result is consist ent with having had varicella zoster virus or vaccination. Performing Location [facility] - [address] [place] [address]
--- OUTSIDE RECORDS SUMMARY | 2024-02-28 01:55 | External Medical Summary | Summary of Care ---
Author Name Unknown Organization [facility] Address [address] [facility] [place] [address] Phone [phone] Care Team Providers Care Level Vial Sealer Name Role Phone Diego Morfin MD Primary Care Provider Reason for Visit * Reason Comments Outpatient Testing Encounter Details Date Type Department Care Team (Late st Contact Info) Description 10/19/2023 10:20 AM EST Laboratory Laboratory, [facility] 132 [facility] [place] [phone] [facility] 132 [facility] [place] [address] Obesity in , antepartum Allergies No known [...] money to get more. Never true 09/06/2023 Winkelman Depression Scale Answer Date Recorded Winkelman Depression Scale Total 5 09/19/2023 The thought [...] Description 10/19/2023 11:30 AM EST Imaging Radiology [facility] 2nd [facility] 132 [facility] [place] [address] Normal in second trimester; Encounter for follow-up ultrasound of anatomy 11/16/2023 2:00 PM EST Office [facility] [address] [place] [address] Emilie Santana CRNP 132 [facility] [place] [address] Nurse Shaq [employer] Return [facility] [address] [place] [address] Pending Results Name Type Priority Associated Diagnoses Date /Time 50-G GESTATIONAL GLUCOSE, 1 HOUR Lab Routine Obesity in , antepartum 10/19/2023 11:11 AM EST Health Maintenance Due Date Last [...] as of this encounter Visit Diagnoses Diagnosis Obesity in , antepartum Obesity complicating , childbirth, or the puerperium, antepartum condition or complication Normal in second trimester Encounter for follow-up ultrasound of anatomy documented in this encounter Care Teams Level Vial Sealer Relationship Specialty Start Date End Date Diego Morfin MD [address] [facility] [address] [place] [address], [place] [address] PCP - General 06/01/00 documented as of this encounter
--- OUTSIDE RECORDS SUMMARY | 2024-02-28 01:55 | External Medical Summary ---
Author Name Unknown Address Unknown Organization K0G:[facility]ATORY [facility] - [address] [place] [address] Laboratory Report Ordering Provider Test Date Status ISABELLA SALAS 10/19/2023 11:11:23 Final Observation Date Value Abnormality Reference (Units ) Status Glucose [Moles/volume] in Serum or Plasma --1 hour post 50 g glucose PO 10/19/2023 11:11:23 130 Above high normal 70-129 (mg/dL) Final Performing Location LABORATORY [facility] 0 - [address] [place] [address]
--- OUTSIDE RECORDS SUMMARY | 2024-02-28 01:56 | External Medical Summary | Summary of Care ---
Author Name Unknown Organization [facility] Address [address] [facility] [address] Phone [phone] Care Team Providers Care Kiln Car Unloader Name Role Phone Diego Morfin MD Primary Care Provider Reason for Visit * Reason Onset Date Comments Order Request 09/04/2023 Dating ultrasoun d Encounter Details Date Type Department Care Team (Late st Contact Info) Description 09/04/2023 Telephone Gynecology/Obstetrics [facility] [address] [place] [address] Dacia Ndiaye CRNP 132 [employer] [place] [address] Order Request (Dating ultrasound ) Social History Tobacco Use Types Packs/Day Years [...] Encounter - Stephy Peterson MED ASSIST - 09/04/2023 2:28 PM EST Dating US scheduled prior to NOB; Please place order and send back to me documented in this encounter Plan of Treatment Upcoming Encounters Date Type Department Care Team (Late st Contact Info) Description 09/06/2023 8:30 AM EST Nurse Only Gynecology/Obstetrics [facility] [address] [place] [address] Gw, Nurse Human Resource Professional [facility] [address] [place] [address] 09/19/2023 8:30 AM EST Imaging Radiology [facility] 2nd [facility] [place] [address] [place] [address] 09/19/2023 9:30 AM EST Office Visit Gynecology/Obstetrics [facility] [address] [place] [address] Backer, KEILA Joseph [address] [place] [address] Scheduled Orders Name Type Priority Associated Diagnoses Orde r Schedule US PELVIS TRANS-VAGINAL OB Medical Imaging Routine at early stage Expected: 09/18/2023 (Approximate), Expires: 10/05/2024 Health Maintenance Due Date Last Done Comments [...] as of this encounter Visit Diagnoses Diagnosis at early stage- Primary documented in this encounter Care Teams Kiln Car Unloader Relationship Specialty Start Date End Date Diego Morfin MD 6 [facility] [address] [place] [address] PCP - General 06/01/00 documented as of this encounter
--- OUTSIDE RECORDS SUMMARY | 2024-02-28 01:56 | External Medical Summary | Summary of Care ---
Author Name Unknown Organization [facility] Address [address] [facility] [place] [address] Phone [phone] Care Team Providers Care Energy Specialist Name Role Phone Diego Morfin MD Primary Care Provider Encounter Details Date Type Department Care Team (Late st Contact Info) Description 09/06/2023 8:30 AM EST Nurse Only Gynecology/Obstetrics [facility] [address] [place] [address] Gw, Nurse Diesel Automotive Technician [facility] [address] [place] [address] Social History Tobacco Use Types Packs/Day Years Used Date Smoking Tobacco: Never Assessed Sex and Gender Information Value Date Recorded Sex Assigned at Not on file Gender Identity Not on file Sexual Orientation Not on file Job Start Date Occupation Industry Not on file Not on file Not on file documented as of this encounter Nursing Notes * Eliza Johnson LPN - 09/06/2023 2:05 PM EST Patient did not answer for Nurse intake. left message for patient to call office. documented in this encounter Plan of Treatment Upcoming Encounters Date Type Department Care Team (Late st Contact Info) Description 09/19/2023 8:30 AM EST Imaging Radiology [facility] [address] [facility] [place] [address] [place] [address] 09/19/2023 9:30 AM EST Office Visit Gynecology/Obstetrics [facility] [address] [place] [address] Backer, KEILA Joseph [address] [place] [address] Health Maintenance Due Date Last Done Comments [...] filedocumented as of this encounter Care Teams Energy Specialist Relationship Specialty Start Date End Date Diego Morfin MD 6 Eddi [address] [place] [address], [place] [address] PCP - General 06/01/00 documented as of this encounter
[2024-02-28 06:45] LABS: Basophils # (auto) 0.01 K/uL (0.00-0.20); Basophils % (auto) 0.1 %; Eosinophils # (auto) 0.02 K/uL (0.00-0.50); Eosinophils % (auto) 0.2 %; Hematocrit (blood only) 32.6 % (37.0-47.0); Hemoglobin 10.6 g/dl (12.0-16.0); Immature Granulocytes # (auto) 0.06 K/uL (0.01-0.20); Immature Granulocytes % (auto) 0.6 %; Lymphocytes # (auto) 1.29 K/uL (1.20-3.40); Lymphocytes % (auto) 12.6 %; Mean Corpuscular Hemoglobin 28.5 pg (25.0-34.0); Mean Corpuscular Hgb Conc 32.5 g/dL (32.0-36.0); Mean Corpuscular Volume 87.6 fL (80.0-100.0); Mean Platelet Volume 14.3 fL (9.4-12.4); Monocytes # (auto) 0.79 K/uL (0.11-0.59); Monocytes % (auto) 7.7 %; Neutrophils # (auto) 8.06 K/uL (1.40-6.50); Neutrophils % (auto) 78.8 %; Platelet Count 100 K/uL (130-400); RDW Standard Deviation 44.7 fL (36.4-46.3); Red Blood Count 3.72 M/uL (4.20-5.40); White Blood Count 10.23 K/ul (4.8-10.8)
--- NOTE | 2024-02-28 06:46 | Anesthesiology Progress Note ---
Date of Service February 28, 2024 Anesthesia Post Procedure Vital Signs Vital Signs: Temp Pulse Pulse Resp BP BP Pulse Ox 02/28/24 06:12 18 97 02/28/24 05:18 18 96 02/28/24 04:07 18 98 02/28/24 03:30 36.8 C 61 18 104/67 97 02/28/24 03:15 18 99 02/28/24 02:07 18 100 02/28/24 01:40 18 100 02/28/24 00:42 36.7 C 61 18 106/69 100 02/28/24 00:35 18 100 02/27/24 23:18 18 99 02/27/24 22:05 18 100 02/27/24 21:14 18 99 02/27/24 21:14 36.6 C 65 18 117/71 99 02/27/24 20:45 36.7 C 18 99 02/27/24 20:14 60 02/27/24 20:14 125/75 02/27/24 20:13 97 02/27/24 20:13 65 02/27/24 20:08 99 02/27/24 20:08 65 02/27/24 20:03 99 02/27/24 20:03 63 02/27/24 20:01 87 L 02/27/24 20:01 70 02/27/24 19:58 95 02/27/24 19:58 74 02/27/24 19:53 98 02/27/24 19:53 66 02/27/24 19:48 99 02/27/24 19:48 66 02/27/24 19:43 99 02/27/24 19:43 58 L 02/27/24 19:43 54 L 02/27/24 19:43 116/67 02/27/24 19:38 100 02/27/24 19:38 61 02/27/24 19:33 93 02/27/24 19:33 69 02/27/24 19:30 18 02/27/24 19:28 99 02/27/24 19:28 59 L 02/27/24 19:27 92 02/27/24 19:27 63 02/27/24 19:23 99 02/27/24 19:23 59 L 02/27/24 19:18 99 02/27/24 19:18 75 02/27/24 19:17 92 02/27/24 19:17 62 02/27/24 19:13 100 02/27/24 19:13 65 02/27/24 19:12 68 02/27/24 19:12 113/71 02/27/24 19:08 97 02/27/24 19:08 63 02/27/24 19:05 93 02/27/24 19:05 77 02/27/24 19:03 99 02/27/24 19:03 69 02/27/24 19:00 36.6 C 18 02/27/24 19:00 16 02/27/24 18:59 94 02/27/24 18:59 74 02/27/24 18:58 97 02/27/24 18:58 74 02/27/24 18:58 112/59 L 02/27/24 18:53 91 02/27/24 18:53 67 02/27/24 18:52 93 02/27/24 18:52 75 02/27/24 18:51 64 02/27/24 18:51 103/60 02/27/24 18:48 99 02/27/24 18:48 73 02/27/24 18:48 87/64 L 02/27/24 18:45 94 02/27/24 18:45 67 02/27/24 18:45 107/61 02/27/24 18:43 98 02/27/24 18:43 87 02/27/24 18:38 98 02/27/24 18:38 85 02/27/24 18:33 99 02/27/24 18:33 85 02/27/24 18:30 20 02/27/24 18:28 97 02/27/24 18:28 94 H 02/27/24 18:26 78 02/27/24 18:26 92/53 L 02/27/24 18:24 69 02/27/24 18:24 93/52 L 02/27/24 18:23 94 02/27/24 18:23 77 02/27/24 18:23 92 02/27/24 18:23 79 02/27/24 18:20 16 02/27/24 18:18 96 02/27/24 18:18 83 02/27/24 18:15 92 02/27/24 18:15 83 02/27/24 18:13 100 02/27/24 18:13 76 02/27/24 18:10 16 02/27/24 18:08 82 L 02/27/24 18:08 79 02/27/24 18:07 92 02/27/24 18:07 79 02/27/24 18:03 100 02/27/24 18:03 77 02/27/24 18:00 36.5 C 85 14 100/57 L 100 02/27/24 17:59 83 02/27/24 17:59 100/57 L 02/27/24 17:58 100 02/27/24 17:58 84 02/27/24 16:32 76 02/27/24 16:32 154/75 H 02/27/24 16:26 71 02/27/24 16:26 155/75 H 02/27/24 15:28 95 H 02/27/24 15:28 139/95 02/27/24 14:36 36.8 C 02/27/24 14:36 73 02/27/24 14:36 137/82 02/27/24 13:35 71 02/27/24 13:35 20 129/74 02/27/24 12:28 20 02/27/24 12:28 20 02/27/24 12:28 68 02/27/24 12:28 129/76 02/27/24 11:29 20 02/27/24 11:29 20 02/27/24 11:29 76 02/27/24 11:29 121/76 02/27/24 10:32 76 02/27/24 10:32 119/72 02/27/24 10:28 16 02/27/24 10:28 36.7 C 16 02/27/24 08:16 36.8 C 20 02/27/24 07:33 101 H 136/77 O2 Del Method 02/28/24 06:12 02/28/24 05:18 02/28/24 04:07 02/28/24 03:30 Room Air 02/28/24 03:15 02/28/24 02:07 02/28/24 01:40 02/28/24 00:42 Room Air 02/28/24 00:35 02/27/24 23:18 02/27/24 22:05 02/27/24 21:14 02/27/24 21:14 Room Air 02/27/24 20:45 02/27/24 20:14 02/27/24 20:14 02/27/24 20:13 02/27/24 20:13 02/27/24 20:08 02/27/24 20:08 02/27/24 20:03 02/27/24 20:03 02/27/24 20:01 02/27/24 20:01 02/27/24 19:58 02/27/24 19:58 02/27/24 19:53 02/27/24 19:53 02/27/24 19:48 02/27/24 19:48 02/27/24 19:43 02/27/24 19:43 02/27/24 19:43 02/27/24 19:43 02/27/24 19:38 02/27/24 19:38 02/27/24 19:33 02/27/24 19:33 02/27/24 19:30 02/27/24 19:28 02/27/24 19:28 02/27/24 19:27 02/27/24 19:27 02/27/24 19:23 02/27/24 19:23 02/27/24 19:18 02/27/24 19:18 02/27/24 19:17 02/27/24 19:17 02/27/24 19:13 02/27/24 19:13 02/27/24 19:12 02/27/24 19:12 02/27/24 19:08 02/27/24 19:08 02/27/24 19:05 02/27/24 19:05 02/27/24 19:03 02/27/24 19:03 02/27/24 19:00 02/27/24 19:00 02/27/24 18:59 02/27/24 18:59 02/27/24 18:58 02/27/24 18:58 02/27/24 18:58 02/27/24 18:53 02/27/24 18:53 02/27/24 18:52 02/27/24 18:52 02/27/24 18:51 02/27/24 18:51 02/27/24 18:48 02/27/24 18:48 02/27/24 18:48 02/27/24 18:45 02/27/24 18:45 02/27/24 18:45 02/27/24 18:43 02/27/24 18:43 02/27/24 18:38 02/27/24 18:38 02/27/24 18:33 02/27/24 18:33 02/27/24 18:30 02/27/24 18:28 02/27/24 18:28 02/27/24 18:26 02/27/24 18:26 02/27/24 18:24 02/27/24 18:24 02/27/24 18:23 02/27/24 18:23 02/27/24 18:23 02/27/24 18:23 02/27/24 18:20 02/27/24 18:18 02/27/24 18:18 02/27/24 18:15 02/27/24 18:15 02/27/24 18:13 02/27/24 18:13 02/27/24 18:10 02/27/24 18:08 02/27/24 18:08 02/27/24 18:07 02/27/24 18:07 02/27/24 18:03 02/27/24 18:03 02/27/24 18:00 02/27/24 17:59 02/27/24 17:59 02/27/24 17:58 02/27/24 17:58 02/27/24 16:32 02/27/24 16:32 02/27/24 16:26 02/27/24 16:26 02/27/24 15:28 02/27/24 15:28 02/27/24 14:36 02/27/24 14:36 02/27/24 14:36 02/27/24 13:35 02/27/24 13:35 02/27/24 12:28 02/27/24 12:28 02/27/24 12:28 02/27/24 12:28 02/27/24 11:29 02/27/24 11:29 02/27/24 11:29 02/27/24 11:29 02/27/24 10:32 02/27/24 10:32 02/27/24 10:28 02/27/24 10:28 02/27/24 08:16 02/27/24 07:33 Pain Intensity Bilateral Lower Abdomen: Pain Intensity: 4 Notes Mental Status: alert / awake / arousable Patient Amnestic to Procedure: Yes Nausea / Vomiting: adequately controlled Pain: adequately controlled Airway Patency, RR, SpO2: stable & adequate BP & HR: stable & adequate Hydration State: stable & adequate Neuraxial Anesthesia: was administered and sensory block is resolving Anesthetic Complications: no major complications apparent
[2024-02-28] MEDS ORDERED: PRENATAL VITAMIN 1 TAB PO SCH (08:00)
[2024-02-28] MEDS: PRENATAL VITAMIN 1 TAB PO SCH (08:46)
[2024-02-28] MEDS: FERROUS SULFATE 325 MG TAB PO SCH (08:46)
[2024-02-28] MEDS: SODIUM CHLORIDE 0.9% 1,000 ML IV SCH (08:46)
--- NOTE | 2024-02-28 10:23 | Obstetrical Progress Note ---
Date of Service February 28, 2024 Assessment & Plan Admission and Anticipated Discharge Date Admission Date: February 27, 2024 Subjective Patient is seen and examined. She feels well, no complaints. Pain is under control with oral meds. Not OOB yet, still has mina catheter Tolerating regular diet with out N&V Flatus none Bleeding is minimal No fever/ chills/ CP/ SOB/ N&V/ Leg pain Bottle feeding without problems Vital Signs Temp Pulse Resp BP Pulse Ox O2 Del Method 02/28/24 10:01 20 96 02/28/24 10:01 20 97 02/28/24 08:00 20 99 02/28/24 07:50 36.7 C 77 20 105/66 99 Room Air 02/28/24 07:00 16 98 02/28/24 06:12 18 97 02/28/24 05:18 18 96 02/28/24 04:07 18 98 02/28/24 03:30 36.8 C 61 18 104/67 97 Room Air 02/28/24 03:15 18 99 02/28/24 02:07 18 100 02/28/24 01:40 18 100 02/28/24 00:42 36.7 C 61 18 106/69 100 Room Air 02/28/24 00:35 18 100 02/27/24 23:18 18 99 Lab Results 02/27/24 02/28/24 Range/Units 07:52 06:06 WBC 8.20 10.23 (4.8-10.8) K/ul RBC 4.61 3.72 L (4.20-5.40) M/uL Hgb 13.1 10.6 L (12.0-16.0) g/dl Hct 40.1 32.6 L (37.0-47.0) % MCV 87.0 87.6 (80.0-100.0) fL MCH 28.4 28.5 (25.0-34.0) pg MCHC 32.7 32.5 (32.0-36.0) g/dL RDW Std Deviation 44.6 44.7 (36.4-46.3) fL RDW Coeff of Cheo 14.1 14.0 (11.5-14.5) % Plt Count 120 L 100 L (130-400) K/uL MPV 13.9 H 14.3 H (9.4-12.4) fL Immature Gran % (Auto) 0.6 % Neut % (Auto) 78.8 % Lymph % (Auto) 12.6 % [place] % (Auto) 7.7 % Eos % (Auto) 0.2 % Baso % (Auto) 0.1 % Neut # (Auto) 8.06 H (1.40-6.50) K/uL Lymph # (Auto) 1.29 (1.20-3.40) K/uL [place] # (Auto) 0.79 H (0.11-0.59) K/uL Eos # (Auto) 0.02 (0.00-0.50) K/uL Baso # (Auto) 0.01 (0.00-0.20) K/uL Immature Gran # (Auto) 0.06 (0.01-0.20) K/uL Blood Type A Positive Antibody Screen NEGATIVE PE: General: Alert, orientedx3, NAD CVS: S1S2 RRR Lungs; CTAB Abd: soft, NT, ND, BS+, fundus firm, below Umbilicus Incision/ Dressing: Clean, dry, intact Perineum intact, Lochia rubra minimal Ext; NT, no edema AP: 38 yo s/p C Section, pod# 1 VSS Afebrile doing well Continue routine postop care Encourage ambulation, PO intake All questions were answered D/C home tomorrow Results & Data Vital Signs (Past 12 Hours) Vital Signs Temp Pulse Resp BP Pulse Ox O2 Del Method 02/28/24 08:00 20 99 02/28/24 07:50 36.7 C 77 20 105/66 99 Room Air 02/28/24 07:00 16 98 02/28/24 06:12 18 97 02/28/24 05:18 18 96 02/28/24 04:07 18 98 02/28/24 03:30 36.8 C 61 18 104/67 97 Room Air 02/28/24 03:15 18 99 02/28/24 02:07 18 100 02/28/24 01:40 18 100 02/28/24 00:42 36.7 C 61 18 106/69 100 Room Air 02/28/24 00:35 18 100 02/27/24 23:18 18 99 02/27/24 22:05 18 100
[2024-02-28] MEDS ORDERED: diphenhydrAMINE 50 MG/ML VIAL IV PRN (10:57)
[2024-02-28] MEDS: KETOROLAC 30 MG/ML VIAL IV PRN (11:08)
[2024-02-28] MEDS: IBUPROFEN 600 MG TAB PO PRN (15:35)
[2024-02-28] MEDS: oxyCODONE/ACETAMINOPHEN 5mg/325mg TAB PO PRN (18:32)
[2024-02-28] MEDS: bisacodyL 5 MG TABEC PO SCH (20:39)
--- NOTE | 2024-02-29 09:59 | Obstetrical Progress Note ---
Date of Service February 29, 2024 Subjective Ambulation: ambulating normally Voiding: no voiding problems Passing Gas:: Yes Diet Tolerance:: regular diet Feeding Type:: breast feeding Current Pain Level(1-10): 0 doing well. wants to go home today. Review of Systems All systems reviewed & are unremarkable except as noted in HPI & below Physical Exam Constitutional WD/WN, vitals as above Gastrointestinal (Abdomen) Inspection/Auscultation: abdomen normal to inspection incision c/d/i. abdomen soft and non-tender. uterus firm below U. Musculoskeletal Extremities: extremities normal to inspection Skin no rashes, warm and dry Neurologic patellar DTR's 2+ bilat, sensation intact Psychiatric A+Ox3, euthymic affect Results & Data Vital Signs (Past 12 Hours) Vital Signs Temp Pulse Resp BP Pulse Ox O2 Del Method 02/29/24 07:50 36.5 C 80 18 131/75 97 Room Air 02/29/24 00:00 36.6 C 72 18 113/74 Laboratory Results 02/27/24 02/28/24 02/29/24 07:52 06:06 06:02 WBC 8.20 10.23 RBC 4.61 3.72 L Hgb 13.1 10.6 L 10.0 L Hct 40.1 32.6 L 31.0 L MCV 87.0 87.6 MCH 28.4 28.5 MCHC 32.7 32.5 RDW Std Deviation 44.6 44.7 RDW Coeff of Cheo 14.1 14.0 Plt Count 120 L 100 L MPV 13.9 H 14.3 H Immature Gran % (Auto) 0.6 Neut % (Auto) 78.8 Lymph % (Auto) 12.6 [place] % (Auto) 7.7 Eos % (Auto) 0.2 Baso % (Auto) 0.1 Neut # (Auto) 8.06 H Lymph # (Auto) 1.29 [place] # (Auto) 0.79 H Eos # (Auto) 0.02 Baso # (Auto) 0.01 Immature Gran # (Auto) 0.06 Blood Type A Positive Antibody Screen NEGATIVE
[2024-02-29] MEDS ORDERED: bisacodyL 10 MG SUPP PR PRN (18:02)
--- NOTE | 2024-03-03 15:11 | Discharge Summary ---
Date of Service March 03, 2024 Admission HPI Per Admitting Provider [id number] F [id number] at 40.5 admitted for IOL for post-dates and AMA. Her GBS is negative. Discharge Data Consultations 02/27/24 07:44 Consult Anesthesiology Stat Procedures Performed Operation Date: 02/27/24 16:30 Actual Procedures p Section in LD breech living female child 1709(Bilateral) - Dre Seymour MD
== END 2024-02-29 16:40 | disposition home or self-care (01) | DRG 788 ==
LOC: 4S1 07:26 → 4E2 21:27